=== PATIENT | female | born 1940 ===

== ENCOUNTER 2020-07-15 07:46 | Outpatient (REF) | payer MEDICARE, SELFPAY ==
--- NOTE | 2020-07-15 | MM_ITS ---
EXAMINATION: MM SCREENING DIGITAL BREAST TOMOSYNTHESIS, BILATERAL CLINICAL INFORMATION: Screening. Asymptomatic. The lifetime risk of breast cancer based on the Tyrer-Cuzick Model is 1.8%. COMPARISON: Mammography: July 11, 2019 and studies dating back to June 12, 2011 TECHNIQUE: Digital breast tomosynthesis is performed in both the craniocaudal and mediolateral oblique views along with computer-aided detection (CAD). Synthesized 2D images are generated from the tomosynthesis. FINDINGS: There are scattered areas of fibroglandular density (ACR BI-RADS breast composition Category b). No new abnormal dominant mass identified. No suspicious grouping of calcifications. No significant change from prior studies. MM/MM tomosynthesis screening BI IMPRESSION: There are no significant changes from prior study. ASSESSMENT: BI-RADS 1: Negative RECOMMENDATION: Routine annual mammography screening. This patient's information was entered into a reminder system with a target due date for their next mammogram.
== END 2020-07-15 07:47 | disposition home or self-care (01) ==
LOC: HO.MAMMO 07:46
PROVIDERS: PCP Internal Medicine; Visit Provider Internal Medicine
DX: Z12.31 Encounter for screening mammogram for malignant neoplasm of breast (principal)
CPT/HCPCS: 77063; 77067

== ENCOUNTER 2020-08-02 12:16 | Outpatient (REF) | payer MEDICARE, SELFPAY ==
[2020-08-02 13:25] LABS: Estimated Average Glucose 126 mg/dL; Hemoglobin A1C 148.7246 umol/L
[2020-08-02 13:47] LABS: Alanine Aminotransferase 20 U/L (0-31); Albumin Level 4.3 g/dL (3.5-5.0); Alkaline Phosphatase 65 U/L (39-117); Aspartate Amino Transferase 20 U/L (5-31); Bilirubin Direct 0.2 mg/dL (0.0-0.5); Bilirubin Total 0.5 mg/dL (0.0-1.0); Cholesterol 180 mg/dL; Glucose Fasting 103 mg/dL (60-99); HDL Cholesterol 64 mg/dL; LDL Cholesterol Calculated 97 mg/dl; Total Protein 7.3 g/dL (6.5-8.0); Triglycerides 98 mg/dL
[2020-08-02 14:25] LABS: Reflex LDLD? No
== END 2020-08-02 12:17 | disposition home or self-care (01) ==
LOC: HO.LNP 12:16
PROVIDERS: PCP Internal Medicine; Visit Provider Internal Medicine
DX: R73.03 Prediabetes (principal); E78.00 Pure hypercholesterolemia, unspecified
CPT/HCPCS: 80061; 80076; 82947; 83036

== ENCOUNTER 2020-08-08 14:50 | Outpatient (REF) | payer MEDICARE, SELFPAY ==
[2020-08-08 15:25] LABS: Glucose Urine UA NEG (NEG); Leukocyte Esterase Urine 3+ (NEG); Nitrite Urine NEG (NEG); PH 6.5 (5.0-8.0); Specific Gravity - Urine <= 1.005 (1.005-1.025); Urine Blood TRACE (NEG); Urine Ketones NEG (NEG); Urine Protein NEG (NEG-TRACE)
[2020-08-08 16:09] LABS: Appearance Urine HAZY; Color Urine YELLOW
[2020-08-08 17:01] LABS: Bacteria Urine 4+ /LPF; WBC Urine 30-49 /HPF (0-4)
== END 2020-08-08 14:51 | disposition home or self-care (01) ==
LOC: HO.LNP 14:50
PROVIDERS: Visit Provider Internal Medicine
DX: N39.0 Urinary tract infection, site not specified (principal)
CPT/HCPCS: 81001; 81003; 87086; 87088; 87186

== ENCOUNTER 2020-08-20 11:28 | Outpatient (REF) | payer MEDICARE, SELFPAY ==
[2020-08-20 11:52] LABS: Glucose Urine UA 100 MG/DL (NEG); Leukocyte Esterase Urine 1+ (NEG); Nitrite Urine NEG (NEG); Specific Gravity - Urine 1.015 (1.005-1.025); Urine Blood NEG (NEG); Urine Ketones NEG (NEG); Urine Protein NEG (NEG-TRACE)
[2020-08-20 11:56] LABS: Color Urine YELLOW
[2020-08-20 11:57] LABS: Appearance Urine HAZY
[2020-08-20 12:16] LABS: Bacteria Urine 3+ /LPF; RBC Urine 0 /HPF (0); Squamous Epithelial Cell Urine 1+ /LPF
== END 2020-08-20 11:29 | disposition home or self-care (01) ==
LOC: HO.LNP 11:28
PROVIDERS: Visit Provider Internal Medicine
DX: N39.0 Urinary tract infection, site not specified (principal)
CPT/HCPCS: 81001; 87086; 87088; 87186

== ENCOUNTER 2020-11-04 10:05 | Day surgery (SDC) | payer MEDICARE, SELFPAY ==
[2020-10-28 16:23] VITALS: BMI 24.3
--- NOTE | 2020-10-31 11:25 | HO.ANESPROP2 ---
Documented by User: Barbie Jensen 10/31/20 11:26 HPI - Anesthesia Eval Consult details Narrative: 80yo F for Colonoscopy [facility] Past Medical History Medical History Arthritis COVID-19 vaccine series completed History of bursitis History of chronic urinary tract infection Hyperlipidemia Surgical History Surgical History History of foot surgery History of knee surgery Hx of bilateral inguinal hernia repair Hx of colonoscopy Social History Social History Are you a primary health careers instructor to a significant other at home: No Do you presently have visiting nurse or other home services: No Smoking Status: Never smoker Use of substances other than those prescribed or required for medical reasons: No Have you been hit, kicked, punched, or otherwise hurt by someone within the past year? If so, by whom?: No Are you DNR?: No Advance Directives: No Advance Directives Information Provided: No Advance Directives on File: No Recently lost weight without trying: No Eating poorly because of decreased appetite: No Nutrition Risks: No Nutritional Risk Patient : No Meds Allergies Allergy/AdvReac Type Severity Reaction Status Date / Time No Known Allergies Allergy Verified 10/28/20 16:20 Home Medications Medication Instructions Recorded Confirmed Last Taken Type calcium carbonate [Calcium 500] 500 mg PO DAILY 10/28/20 10/28/20 Unknown History simvastatin 10 mg PO DAILY 10/28/20 10/28/20 Unknown History Exam Exam Date and Time: October 31, 2020 1125 Height,Weight and Vital Signs: Height 5 ft 2 in Weight 60.328 kg Assessment and Plan Assessment Anesthesia Assessment: Chart Reviewed Documented by User: John Levi 11/04/20 11:23 [facility] Past Medical History Medical History Arthritis COVID-19 vaccine series completed History of bursitis History of chronic urinary tract infection Hyperlipidemia Surgical History Surgical History History of foot surgery History of knee surgery Hx of bilateral inguinal hernia repair Hx of colonoscopy Social History Social History Are you a primary health careers instructor to a significant other at home: No Do you presently have visiting nurse or other home services: No Smoking Status: Never smoker Use of substances other than those prescribed or required for medical reasons: No Have you been hit, kicked, punched, or otherwise hurt by someone within the past year? If so, by whom?: No Are you DNR?: No Advance Directives: No Advance Directives Information Provided: No Advance Directives on File: No Recently lost weight without trying: No Eating poorly because of decreased appetite: No Nutrition Risks: No Nutritional Risk Patient : No Meds Allergies Allergy/AdvReac Type Severity Reaction Status Date / Time No Known Allergies Allergy Verified 10/28/20 16:20 Home Medications Medication Instructions Recorded Confirmed Last Taken Type calcium carbonate [Calcium 500] 500 mg PO DAILY 10/28/20 10/28/20 Unknown History simvastatin 10 mg PO DAILY 10/28/20 10/28/20 Unknown History Exam Airway Mallampati Class: II TM Dist: >3cm Neck ROM: Full
[2020-11-04 11:17] VITALS: BP 136/80; PULSE 78; RESP 18; TEMP 36.7; O2SAT 96
[2020-11-04] MEDS: Lactated Ringers 1,000 ML 100 ML IVCONT (11:19)
[2020-11-04 13:21] VITALS: BP 95/60; PULSE 71; RESP 14; TEMP 37.2; O2SAT 93
--- NOTE | 2020-11-04 13:23 | PM.OP ---
Brief Operative Note Date of Service: 11/04/20 Pre-op diagnosis: Screening, Family history of colon cancer Post-op diagnosis: other (Colon polyp, Distal rectal polyp at dentate line) Procedure: Colonoscopy to the cecum and TI with bx/removal of polyp at 20cm, and snare polypectomy of polyp at dentate line with partial removal. Surgeon: Lane Gracia Anesthesia: MAC Was an Stamping Die Maker Bench used for this Procedure?: No Estimated blood loss (mL): 4.0 Pathology: other (A. Polyp at 20cm B. Distal rectal polyp at dentate line) Condition: stable Disposition: PACU
[2020-11-04 13:42] VITALS: BP 129/65; PULSE 66; RESP 16; TEMP 37.2; O2SAT 97
--- NOTE | 2020-11-04 18:28 | OP_ITS ---
SURGEON: Lane Gracia MD INDICATIONS: The patient presents for evaluation of colorectal cancer screening in regard to strong family history of colon cancer. Full consent has been obtained from her for this, including risks of bleeding and perforation. PREOPERATIVE DIAGNOSIS: POSTOPERATIVE DIAGNOSIS: PROCEDURE PERFORMED: Colonoscopy to cecum and terminal ileum with biopsy and removal of polyp, and snare polypectomy. ESTIMATED BLOOD LOSS: COMPLICATIONS: ANESTHESIA: Monitored anesthesia care. ASSISTANTS: SPECIMENS: PREOPERATIVE DIAGNOSES: Colorectal cancer screening and strong family history of colon cancer. POSTOPERATIVE DIAGNOSES: Colorectal cancer screening and strong family history of colon cancer, colorectal polyps, diverticulosis. DESCRIPTION OF PROCEDURE: The patient was placed in the left lateral decubitus position. The digital rectal exam revealed no abnormalities. The Olympus video pediatric colonoscope was entered into the rectum and advanced easily to the cecum. Once in the cecum, I did identify normal-appearing cecal pouch with appendiceal orifice and a normal-appearing ileocecal valve. The terminal ileum was cannulated and appeared normal. The scope was withdrawn back in the colon. The entire cecum and ileocecal valve appeared normal. Scope was slowly withdrawn assessing all mucosal surfaces carefully. Preparation was excellent. At 20 cm, was a flat approximately 4 mm polyp, which was biopsied and completely removed with a cold biopsy forceps. There was also a moderate amount of sigmoid diverticulosis. There was no sign of any colitis nor angiodysplasia. In the rectum, seen in the retroflexed position, was what appeared to be an adenomatous area just at the dentate line encompassing approximately 1/5 to 1/4 the circumference of the rectum in what appeared to be the posterior wall. Portions of this were snared and removed and recovered by suction. However, given the location, I could not remove it entirely as I felt it was really just encroaching on the dentate line too closely. The lesion could not really be seen in the forward viewing position. There was no sign of bleeding. Some portions of polyp tissue did remain. The scope was straightened out and withdrawn from the patient. She tolerated the procedure well and was returned to the recovery area in stable condition. IMPRESSION: 1. Small sigmoid colon polyp, status post biopsy and removal. 2. Polypoid tissue seen at dentate line, status post partial snare polypectomy and removal. 3. Diverticulosis. PLAN: The results of the pathology will be checked. Given the finding of the apparent polyp at the dentate line, I suspect she will need a referral for transanal excision of this to be sure no residual polyp tissue remains. She was advised not to use any aspirin and NSAIDs for 1 week. This has been discussed with her daughter. MD MAURICIO Maher/ALLY / [id number] MTDD
== END 2020-11-04 14:16 | disposition home or self-care (01) ==
PROVIDERS: PCP Internal Medicine; Visit Provider Internal Medicine
PROC: 0DJD8ZZ Inspection of Lower Intestinal Tract, Via Natural or Artificial Opening Endoscopic (ICD-10-PCS; CPT 45378; principal; 2020-11-04 11:20)
DX: Z12.11 Encounter for screening for malignant neoplasm of colon (principal); Z80.0 Family history of malignant neoplasm of digestive organs; D12.5 Benign neoplasm of sigmoid colon; K62.1 Rectal polyp; K62.82 Dysplasia of anus; K57.30 Diverticulosis of large intestine without perforation or abscess without bleeding; K64.8 Other hemorrhoids
CPT/HCPCS: 45385; 45380; 88305

== ENCOUNTER → 2020-11-13 13:42 | Outpatient (BNVA) | payer MEDICARE, SELFPAY | PROVIDERS: PCP Internal Medicine; Referring Provider Internal Medicine; Visit Provider Surgery | DX: K62.82 Dysplasia of anus (principal) | CPT/HCPCS: 46600; 99202 ==

== ENCOUNTER 2020-11-29 08:20 | Day surgery (SDC) | payer MEDICARE, SELFPAY ==
[2020-11-25 10:10] VITALS: BMI 23.6
--- NOTE | 2020-11-27 10:51 | P.CONAN_ITS ---
Documented by User: Barbie Jensen 11/27/20 10:52 HPI - Anesthesia Eval Consult details Narrative: 80yo F for Exam Under Anesthesia excision of anal lesion s/p colo with MAC 10/2020 [facility] Active Problems Active Problems: All Active Problems (Updated 11/13/20 @ 14:30 by Dougie Serra MD) AIN grade I (Acute) Past Medical History Medical History AIN grade I Arthritis COVID-19 vaccine series completed History of bursitis History of chronic urinary tract infection Hyperlipidemia Surgical History Surgical History History of foot surgery History of knee surgery Hx of bilateral inguinal hernia repair Hx of colonoscopy Social History Social History Are you a primary medicare sales representative to a significant other at home: No Do you presently have visiting nurse or other home services: No Patient Tobacco Use Status: Never used Tobacco Use of substances other than those prescribed or required for medical reasons: No Are you DNR?: No Advance Directives: No Advance Directives Information Provided: No Meds Allergies Allergy/AdvReac Type Severity Reaction Status Date / Time No Known Allergies Allergy Verified 11/25/20 10:08 Home Medications Medication Instructions Recorded Confirmed Last Taken Type calcium carbonate-vitamin D3 1 cap PO DAILY 11/25/20 11/25/20 Unknown History [Calcium 600 + D(3)] simvastatin 1 tab PO BEDTIME 11/25/20 11/25/20 Unknown History Exam Exam Date and Time: November 27, 2020 1051 Height,Weight and Vital Signs: Height 5 ft 2 in Weight 58.513 kg Assessment and Plan Assessment Anesthesia Assessment: Chart Reviewed Documented by User: John Levi 11/29/20 09:47 [facility] Past Medical History Medical History AIN grade I Arthritis COVID-19 vaccine series completed History of bursitis History of chronic urinary tract infection Hyperlipidemia Surgical History Surgical History History of foot surgery History of knee surgery Hx of bilateral inguinal hernia repair Hx of colonoscopy Social History Social History Are you a primary medicare sales representative to a significant other at home: No Do you presently have visiting nurse or other home services: No Patient Tobacco Use Status: Never used Tobacco Use of substances other than those prescribed or required for medical reasons: No Are you DNR?: No Advance Directives: No Advance Directives Information Provided: No Meds Allergies Allergy/AdvReac Type Severity Reaction Status Date / Time No Known Allergies Allergy Verified 11/25/20 10:08 Home Medications Medication Instructions Recorded Confirmed Last Taken Type calcium carbonate-vitamin D3 1 cap PO DAILY 11/25/20 11/25/20 Unknown History [Calcium 600 + D(3)] simvastatin 1 tab PO BEDTIME 11/25/20 11/25/20 Unknown History Exam Airway Mallampati Class: II TM Dist: >3cm Neck ROM: Full
[2020-11-29 09:25] VITALS: BP 137/68; PULSE 64; RESP 16; TEMP 37.1; O2SAT 97
[2020-11-29] MEDS: Lactated Ringers 1,000 ML 100 ML IVCONT (09:27)
--- NOTE | 2020-11-29 09:42 | MHC.SHP ---
Pre-Procedural Eval Section B Chief Complaint: dysplasia of anus Allergies: Allergies Allergy/AdvReac Type Severity Reaction Status Date / Time No Known Allergies Allergy Verified 11/25/20 10:08 Plan I have reviewed the history and physical and performed a pertinent physical examination on my patient. No changes have occurred unless specified.
--- NOTE | 2020-11-29 10:49 | W.PM.OPN ---
Operative Note Operative Note Date of Service: 11/29/20 Narrative: Preop Diagnosis: AIN1, anal canal Postop diagnosis: The same Procedure: Exam under anesthesia, excision of AIN1, anal canal Surgeon: Dougie Serra MD The patient is a 80 year female who had undergone anoscopy recently and was noted to have polyp on the area of the dentate line that was removed. 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 Since this was not completely removed, she was referred to me and she wanted to proceed with complete excision. She understood the technique of this procedure and she was aware of the risks, benefits, and alternatives She was brought to the operating room placed in prone mark-knife position under general anesthesia via endotracheal tube. The buttocks were retracted with wide tape laterally. The perianal area was prepped and draped in the usual sterile fashion. A surgical time-out was done. Patient received Cefotan 2 g IV preoperatively. Examination of the anal orifice showed external hemorrhoids. I inserted the Yisel Perez retractor and examined the anal canal circumferentially. There was note of a superficial induration in the right side of the anal canal at the level dentate line which appeared to be the previous incision site from his her colonoscopy. There were no other lesions seen in the anal canal. I applied a ydjlig-dy-dsedf stitch proximal to the dentate line past this lesion using a chromic 3-0 stitch. I made an elliptical incision around this induration using blade 15. I carried this to the full-thickness of the mucosa and submucosa of the dentate line and used Metzenbaum scissors to completely excise this. This was sent as specimen. I closed this incision with a running chromic 3-0 stitch, with additional spprwd-[id number]-cqfcp sutures applied for hemostasis. Once hemostasis was ensured, I proceeded to infiltrate the perianal area with Marcaine 0.5% for postop analgesia. I positioned a Gelfoam packing the anal canal. The procedure was then completed. The patient tolerated procedure well. There were no complications noted. Initial final counts of sponges and instruments were correct. Estimated blood loss was about 10 cc The patient was extubated without difficulty and transferred to the recovery room with stable vital signs.
--- NOTE | 2020-11-29 10:53 | PM.OP ---
Brief Operative Note Date of Service: 11/29/20 Pre-op diagnosis: AIN 1, ANAL CANAL Post-op diagnosis: same Procedure: EUA, excision of anal canal lesion Surgeon: Dougie Serra MD Anesthesia: GETA Estimated blood loss (mL): 10 Pathology: other (AIN 1) Condition: stable Disposition: PACU
[2020-11-29 11:04] VITALS: BP 144/76; PULSE 55; RESP 16; TEMP 36.1; O2SAT 100
[2020-11-29 11:08] VITALS: BP 136/64; PULSE 52; RESP 16; O2SAT 100
[2020-11-29 11:13] VITALS: BP 139/64; PULSE 57; RESP 16; O2SAT 100
[2020-11-29] MEDS: Acetaminophen 325 MG TABLET 650 MG PO (11:18)
[2020-11-29] MEDS: oxyCODONE HCl Immed Release 5 MG TABLET PO (11:19)
[2020-11-29 11:20] VITALS: BP 145/60; PULSE 61; RESP 18; O2SAT 99
[2020-11-29 11:27] VITALS: BP 144/54; PULSE 54; RESP 18; TEMP 36.1; O2SAT 99
== END 2020-11-29 12:07 | disposition home or self-care (01) ==
PROVIDERS: PCP Internal Medicine; Visit Provider Surgery
PROC: (CPT 46922; principal; 2020-11-29 10:10)
DX: K62.82 Dysplasia of anus (principal); E78.5 Hyperlipidemia, unspecified; Z79.899 Other long term (current) drug therapy; Z87.440 Personal history of urinary (tract) infections
CPT/HCPCS: 46922; 88305; 88342; 88360; J1100; J2250; J2405; J3010

== ENCOUNTER → 2020-12-11 09:19 | Outpatient (BNVA) | payer MEDICARE, SELFPAY | PROVIDERS: PCP Internal Medicine; Visit Provider Surgery | DX: Z48.815 Encounter for surgical aftercare following surgery on the digestive system (principal); Z87.19 Personal history of other diseases of the digestive system | CPT/HCPCS: 99212 ==

== ENCOUNTER 2021-01-20 10:59 | Outpatient (REF) | payer MEDICARE, SELFPAY ==
[2021-01-20 11:04] LABS: MANUAL DIFF FLAG NO
[2021-01-20 11:40] LABS: Basophils Percent Auto 0.4 % (0-2); Eosinophils Absolute Auto 0.1 X10*3/uL (0.0-0.4); Eosinophils Percent Auto 1.4 % (0-4); Hematocrit 46.4 % (37-47); Hemoglobin 14.8 g/dl (12.0-16.0); Imm Gran Abs Auto 0.05 X10*3/uL (0.00-0.03); Imm Gran Pct Auto 0.5 % (0.0-0.4); Lymphocytes Absolute Auto 1.8 X10*3/uL (1.2-4.9); Lymphocytes Percent Auto 18.4 % (20-40); Mean Corpuscular HGB Conc 31.9 g/dl (31.0-35.0); Mean Corpuscular Hemoglobin 30.1 pg (27.0-33.0); Mean Corpuscular Volume 94.3 fL (80-98); Mean Platelet Volume 11.8 fL (9.4-12.3); Monocytes Absolute Auto 1.1 X10*3/uL (0.1-1.2); Monocytes Percent Auto 11.2 % (2-11); Neutrophils Absolute Auto 6.6 X10*3/uL (2.0-8.3); Neutrophils Percent Auto 68.1 % (45-73); Platelet Count 303 X10*3/uL (160-400); Red Blood Count 4.92 X10*6/uL (4.20-5.50); Red Cell Distribution Width 14.4 % (11.0-16.0); White Blood Count 9.7 X10*3/uL (4.8-10.8)
[2021-01-20 12:14] LABS: Estimated Average Glucose 128 mg/dL; Hemoglobin A1c % 6.1 %
[2021-01-20 12:19] LABS: Alanine Aminotransferase 24 U/L (0-31); Albumin Level 4.5 g/dL (3.5-5.0); Alkaline Phosphatase 61 U/L (39-117); Anion Gap 15 (12-20); Aspartate Amino Transferase 25 U/L (5-31); Bilirubin Total 0.4 mg/dL (0.0-1.0); Blood Urea Nitrogen 17 mg/dL (9-16); Calcium 9.8 mg/dL (8.4-10.2); Carbon Dioxide 26 mmol/L (22-29); Chloride 106 mmol/L (96-108); Cholesterol 185 mg/dL; Estimated Glomerular Filt Rate > 60; Glucose Fasting 93 mg/dL (60-99); HDL Cholesterol 78 mg/dL; LDL Cholesterol Calculated 88 mg/dl; Potassium 4.7 mmol/L (3.3-5.1); Sodium 142 mmol/L (135-145); Total Protein 7.6 g/dL (6.5-8.0); Triglycerides 99 mg/dL
[2021-01-20 12:26] LABS: Reflex LDLD? No
[2021-01-20 12:28] LABS: Glucose Urine UA NEG (NEG); Leukocyte Esterase Urine 3+ (NEG); Nitrite Urine NEG (NEG); Specific Gravity - Urine 1.015 (1.005-1.025); Urine Blood TRACE (NEG); Urine Ketones NEG (NEG); Urine Protein NEG (NEG-TRACE)
[2021-01-20 12:29] LABS: Vitamin D 25-OH Total 42.5 ng/mL (>30)
[2021-01-20 12:41] LABS: Appearance Urine CLOUDY; Color Urine YELLOW
[2021-01-20 12:44] LABS: Creatinine Urine 116.43 mg/dL
[2021-01-20 12:53] LABS: Bacteria Urine 3+ /LPF; Renal Epithelial Cells Urine 1+ /LPF; Squamous Epithelial Cell Urine 1+ /LPF; WBC Urine TNTC /HPF (0-4)
== END 2021-01-20 11:00 | disposition home or self-care (01) ==
LOC: HO.LNP 10:59
PROVIDERS: Visit Provider Internal Medicine
DX: Z00.00 Encounter for general adult medical examination without abnormal findings (principal); R73.03 Prediabetes; M85.80 Other specified disorders of bone density and structure, unspecified site; E55.9 Vitamin D deficiency, unspecified; E78.00 Pure hypercholesterolemia, unspecified
CPT/HCPCS: 80053; 80061; 81001; 81003; 82043; 82306; 83036; 85025

== ENCOUNTER 2021-01-23 13:44 | Outpatient (REF) | payer MEDICARE, SELFPAY | END 2021-01-23 13:45 | disposition home or self-care (01) | LOC: HO.LNP 13:44 | PROVIDERS: Visit Provider Internal Medicine | DX: N30.00 Acute cystitis without hematuria (principal) | CPT/HCPCS: 87086; 87088; 87186 ==

== ENCOUNTER 2021-07-17 09:49 | Outpatient (REF) | payer MEDICARE, SELFPAY ==
--- NOTE | ~2021-07-17 | MM_ITS ---
EXAMINATION: MM SCREENING DIGITAL BREAST TOMOSYNTHESIS, BILATERAL CLINICAL INFORMATION: Screening. Asymptomatic. The lifetime risk of breast cancer based on the Tyrer-Cuzick Model is 1.3%. COMPARISON: Mammography: July 15, 2020 and studies dating back to June 25, 2015 TECHNIQUE: Digital breast tomosynthesis is performed in both the craniocaudal and mediolateral oblique views along with computer-aided detection (CAD). Synthesized 2D images are generated from the tomosynthesis. FINDINGS: There are scattered areas of fibroglandular density (ACR BI-RADS breast composition Category b). There are no significant masses, abnormal calcifications, or other abnormalities. MM/MM tomosynthesis screening BI IMPRESSION: There are no significant changes from prior study. ASSESSMENT: BI-RADS 1: Negative RECOMMENDATION: Routine annual mammography screening. This patient's information was entered into a reminder system with a target due date for their next mammogram.
== END 2021-07-17 09:50 | disposition home or self-care (01) ==
LOC: HO.MAMMO 09:49
PROVIDERS: Visit Provider Internal Medicine
DX: Z12.31 Encounter for screening mammogram for malignant neoplasm of breast (principal)
CPT/HCPCS: 77063; 77067

== ENCOUNTER 2021-10-13 13:42 | Outpatient (REF) | payer MEDICARE, SELFPAY | END 2021-10-13 13:43 | disposition home or self-care (01) | LOC: HO.LNP 13:42 | PROVIDERS: Visit Provider Emergency Medicine | DX: N39.0 Urinary tract infection, site not specified (principal) | CPT/HCPCS: 87086 ==

== ENCOUNTER 2021-11-11 09:59 | Outpatient (REF) | payer MEDICARE, SELFPAY ==
[2021-11-11 10:36] LABS: Appearance Urine CLOUDY; Color Urine YELLOW; Glucose Urine UA NEG (NEG); Leukocyte Esterase Urine 3+ (NEG); Nitrite Urine NEG (NEG); Specific Gravity - Urine 1.025 (1.005-1.025); Urine Blood 3+ (NEG); Urine Ketones NEG (NEG); Urine Protein 2+ MG/DL (NEG-TRACE)
[2021-11-11 11:33] LABS: WBC Urine TNTC /HPF (0-4)
[2021-11-11 11:35] LABS: Bacteria Urine 1+ /LPF; Squamous Epithelial Cell Urine 1+ /LPF
== END 2021-11-11 10:00 | disposition home or self-care (01) ==
LOC: HO.LNP 09:59
PROVIDERS: Visit Provider Internal Medicine
DX: N39.0 Urinary tract infection, site not specified (principal)
CPT/HCPCS: 81001; 87086

== ENCOUNTER 2021-12-02 11:07 | Outpatient (REF) | payer MEDICARE, SELFPAY ==
[2021-12-02 11:45] LABS: Appearance Urine CLEAR; Color Urine YELLOW; Glucose Urine UA NEG (NEG); Leukocyte Esterase Urine 1+ (NEG); Nitrite Urine NEG (NEG); Urine Blood NEG (NEG); Urine Ketones NEG (NEG); Urine Protein NEG (NEG-TRACE)
[2021-12-02 12:12] LABS: Hyaline Casts Urine 0-2 /LPF; Mucus Urine 1+ /LPF; RBC Urine 0-2 /HPF (0); Squamous Epithelial Cell Urine 2+ /LPF
== END 2021-12-02 11:08 | disposition home or self-care (01) ==
LOC: HO.LNP 11:07
PROVIDERS: Visit Provider Internal Medicine
DX: Z51.89 Encounter for other specified aftercare (principal); R82.90 Unspecified abnormal findings in urine
CPT/HCPCS: 81001

== ENCOUNTER → 2021-12-04 08:50 | Outpatient (BNVA) | payer MEDICARE, SELFPAY | PROVIDERS: PCP Internal Medicine; Visit Provider Surgery | DX: K62.82 Dysplasia of anus (principal) | CPT/HCPCS: 46600; 99212 ==

== ENCOUNTER 2022-01-19 10:30 | Outpatient (REF) | payer MEDICARE, SELFPAY ==
[2022-01-19 10:35] LABS: MANUAL DIFF FLAG NO
[2022-01-19 10:56] LABS: Basophils Absolute Auto 0.1 X10*3/uL (0.0-0.2); Basophils Percent Auto 0.8 % (0-2); Eosinophils Absolute Auto 0.1 X10*3/uL (0.0-0.4); Eosinophils Percent Auto 1.5 % (0-4); Hematocrit 42.1 % (37.0-47.0); Hemoglobin 13.6 g/dl (12.0-16.0); Imm Gran Abs Auto 0.03 X10*3/uL (0.00-0.03); Imm Gran Pct Auto 0.4 % (0.0-0.4); Lymphocytes Absolute Auto 1.8 X10*3/uL (1.2-4.9); Lymphocytes Percent Auto 23.3 % (20-40); Mean Corpuscular HGB Conc 32.3 g/dl (31.0-35.0); Mean Corpuscular Hemoglobin 30.2 pg (27.0-33.0); Mean Corpuscular Volume 93.3 fL (80.0-98.0); Mean Platelet Volume 10.6 fL (9.4-12.3); Monocytes Absolute Auto 0.8 X10*3/uL (0.1-1.2); Monocytes Percent Auto 10.1 % (2-11); Neutrophils Percent Auto 63.9 % (45-73); Platelet Count 327 X10*3/uL (160-400); Red Blood Count 4.51 X10*6/uL (4.20-5.50); Red Cell Distribution Width 12.4 % (11.0-16.0); White Blood Count 7.9 X10*3/uL (4.8-10.8)
[2022-01-19 11:10] LABS: Estimated Average Glucose 117 mg/dL; Hemoglobin A1c % 5.7 %
[2022-01-19 11:13] LABS: Alanine Aminotransferase 21 U/L (0-31); Albumin Level 4.3 g/dL (3.5-5.0); Alkaline Phosphatase 70 U/L (39-117); Anion Gap 14 (12-20); Aspartate Amino Transferase 22 U/L (5-31); Bilirubin Total 0.5 mg/dL (0.0-1.0); Blood Urea Nitrogen 21 mg/dL (9-16); Calcium 9.3 mg/dL (8.4-10.2); Carbon Dioxide 27 mmol/L (22-29); Chloride 105 mmol/L (96-108); Cholesterol 197 mg/dL; Estimated Glomerular Filt Rate > 60; Glucose Fasting 112 mg/dL (60-99); HDL Cholesterol 64 mg/dL; LDL Cholesterol Calculated 117 mg/dl; Potassium 4.8 mmol/L (3.3-5.1); Sodium 141 mmol/L (135-145); Total Protein 7.1 g/dL (6.5-8.0); Triglycerides 84 mg/dL
[2022-01-19 11:22] LABS: Creatinine Urine 60.94 mg/dL; Microalbumin Urine < 5.0 mg/L
[2022-01-19 11:33] LABS: Appearance Urine CLEAR; Color Urine STRAW; Glucose Urine UA NEG (NEG); Leukocyte Esterase Urine NEG (NEG); Nitrite Urine NEG (NEG); PH 6.5 (5.0-8.0); Urine Blood NEG (NEG); Urine Ketones NEG (NEG); Urine Protein NEG (NEG-TRACE)
[2022-01-19 11:36] LABS: Vitamin D 25-OH Total 43.3 ng/mL (>30)
[2022-01-19 11:55] LABS: Squamous Epithelial Cell Urine TRACE /LPF
[2022-01-19 11:56] LABS: RBC Urine 0 /HPF (0); WBC Urine 0-2 /HPF (0-4)
== END 2022-01-19 10:31 | disposition home or self-care (01) ==
LOC: HO.LNP 10:30
PROVIDERS: Visit Provider Internal Medicine
DX: Z00.00 Encounter for general adult medical examination without abnormal findings (principal); R73.03 Prediabetes; E78.00 Pure hypercholesterolemia, unspecified; E55.9 Vitamin D deficiency, unspecified
CPT/HCPCS: 80053; 80061; 81001; 82043; 82306; 83036; 85025

== ENCOUNTER 2022-01-30 11:10 | Outpatient (REF) | payer MEDICARE, SELFPAY | END 2022-01-30 11:11 | disposition home or self-care (01) | LOC: HO.LNP 11:10 | PROVIDERS: Visit Provider Internal Medicine | DX: Z12.4 Encounter for screening for malignant neoplasm of cervix (principal) | CPT/HCPCS: 88142 ==

== ENCOUNTER 2022-07-23 10:44 | Outpatient (REF) | payer MEDICARE, SELFPAY ==
--- NOTE | ~2022-07-23 | MM_ITS ---
EXAMINATION: MM SCREENING DIGITAL BREAST TOMOSYNTHESIS, BILATERAL CLINICAL INFORMATION: Screening. Asymptomatic. The lifetime risk of breast cancer based on the Tyrer-Cuzick Model is 1.4%. COMPARISON: Mammography: July 17, 2021 and studies dating back to June 25, 2015 TECHNIQUE: Digital breast tomosynthesis is performed in both the craniocaudal and mediolateral oblique views along with computer-aided detection (CAD). Synthesized 2D images are generated from the tomosynthesis. FINDINGS: There are scattered areas of fibroglandular density (ACR BI-RADS breast composition Category b). There are no significant masses, abnormal calcifications, or other abnormalities. MM/MM tomosynthesis screening BI IMPRESSION: No significant changes from prior exam. ASSESSMENT: BI-RADS 1: Negative RECOMMENDATION: Routine annual mammography screening. This patient's information was entered into a reminder system with a target due date for their next mammogram.
== END 2022-07-23 10:45 | disposition home or self-care (01) ==
LOC: HO.MAMMO 10:44
PROVIDERS: Visit Provider Internal Medicine
DX: Z12.31 Encounter for screening mammogram for malignant neoplasm of breast (principal)
CPT/HCPCS: 77063; 77067

== ENCOUNTER 2022-09-21 15:32 | Outpatient (REF) | payer MEDICARE, SELFPAY ==
[2022-09-21 15:43] LABS: Appearance Urine Clear; Color Urine Yellow; Glucose Urine UA 250 mg/dL (Negative); Leukocyte Esterase Urine Moderate (2+) (Negative); Nitrite Urine Negative (Negative); Specific Gravity - Urine 1.025 (1.005-1.025); UMIC TRIGGER UA YES; Urine Blood Negative (Negative); Urine Ketones Negative (Negative); Urine Protein Trace mg/dL (Neg-Trace)
[2022-09-21 15:46] LABS: Bacteria Urine None Seen (None Seen); Hyaline Casts Urine 0-2 /LPF (0-2); RBC Urine 0-2 /HPF (0-2); Squamous Epithelial Cell Urine 0-2 /HPF (0-2); WBC Urine >50 /HPF (0-5)
== END 2022-09-21 15:33 | disposition home or self-care (01) ==
LOC: HO.LNP 15:32
PROVIDERS: Visit Provider Internal Medicine
DX: B02.29 Other postherpetic nervous system involvement (principal); N30.00 Acute cystitis without hematuria
CPT/HCPCS: 81001; 87086

== ENCOUNTER → 2022-11-19 09:39 | Outpatient (BNVA) | payer MEDICARE, SELFPAY | PROVIDERS: PCP Internal Medicine; Visit Provider Surgery | DX: K62.82 Dysplasia of anus (principal); Z80.41 Family history of malignant neoplasm of ovary | CPT/HCPCS: 46600; 99212 ==

== ENCOUNTER 2023-02-18 11:31 | Outpatient (REF) | payer MEDICARE, SELFPAY ==
[2023-02-18 11:57] LABS: MANUAL DIFF FLAG NO
[2023-02-18 12:19] LABS: Basophils Absolute Auto 0.1 X10*3/uL (0.0-0.2); Basophils Percent Auto 0.9 % (0-2); Eosinophils Absolute Auto 0.3 X10*3/uL (0.0-0.4); Eosinophils Percent Auto 4.3 % (0-4); Hematocrit 41.9 % (37.0-47.0); Hemoglobin 13.8 g/dl (12.0-16.0); Imm Gran Abs Auto 0.02 X10*3/uL (0.00-0.03); Imm Gran Pct Auto 0.3 % (0.0-0.4); Lymphocytes Absolute Auto 1.8 X10*3/uL (1.2-4.9); Lymphocytes Percent Auto 27.8 % (20-40); Mean Corpuscular HGB Conc 32.9 g/dl (31.0-35.0); Mean Corpuscular Volume 91.1 fL (80.0-98.0); Mean Platelet Volume 10.1 fL (9.4-12.3); Monocytes Percent Auto 15.8 % (2-11); Neutrophils Absolute Auto 3.3 x10*3/uL (2.0-8.3); Neutrophils Percent Auto 50.9 % (45-73); Platelet Count 343 X10*3/uL (160-400); Red Cell Distribution Width 12.6 % (11.0-16.0); White Blood Count 6.4 X10*3/uL (4.8-10.8)
[2023-02-18 12:25] LABS: Appearance Urine Clear; Color Urine Yellow; Glucose Urine UA Negative (Negative); Leukocyte Esterase Urine Trace (Negative); Nitrite Urine Negative (Negative); PH 7.5 (5.0-9.0); Specific Gravity - Urine 1.015 (1.005-1.025); UMIC TRIGGER UACC YES; Urine Blood Negative (Negative); Urine Ketones Negative (Negative); Urine Protein Negative (Neg-Trace)
[2023-02-18 12:30] LABS: Estimated Average Glucose 120 mg/dL; Hemoglobin A1c % 5.8 % (<6.0)
[2023-02-18 12:41] LABS: Alanine Aminotransferase 25 U/L (0-31); Albumin Level 4.2 g/dL (3.5-5.0); Alkaline Phosphatase 68 U/L (39-117); Anion Gap 14 (12-20); Aspartate Amino Transferase 27 U/L (5-31); Bilirubin Total 0.3 mg/dL (0.0-1.0); Blood Urea Nitrogen 15 mg/dL (9-16); Calcium 10.5 mg/dL (8.4-10.2); Carbon Dioxide 25 mmol/L (22-29); Chloride 104 mmol/L (96-108); Cholesterol 162 mg/dL (<200); Estimated Glomerular Filt Rate > 60; Glucose Fasting 94 mg/dL (60-99); HDL Cholesterol 64 mg/dL (>40); LDL Cholesterol Calculated 82 mg/dL (<100); Potassium 4.1 mmol/L (3.3-5.1); Sodium 139 mmol/L (135-145); Total Protein 7.3 g/dL (6.5-8.0); Triglycerides 82 mg/dL (<150)
[2023-02-18 12:44] LABS: Vitamin D 25-OH Total 55.2 ng/mL (>30)
[2023-02-18 14:05] LABS: Microalbum/Creatinine Ratio Ur 7.4 ug/mg cr (<30)
[2023-02-18 15:35] LABS: Bacteria Urine None Seen (None Seen); Hyaline Casts Urine 0-2 /LPF (0-2); RBC Urine 0-2 /HPF (0-2); Squamous Epithelial Cell Urine 0-2 /HPF (0-2); WBC Urine 0-5 /HPF (0-5)
== END 2023-02-18 11:32 | disposition home or self-care (01) ==
LOC: HO.LNP 11:31
PROVIDERS: Visit Provider Internal Medicine
DX: Z00.00 Encounter for general adult medical examination without abnormal findings (principal); R73.03 Prediabetes; E78.00 Pure hypercholesterolemia, unspecified; E55.9 Vitamin D deficiency, unspecified
CPT/HCPCS: 80053; 80061; 81001; 81003; 82043; 82306; 82570; 83036; 85025

== ENCOUNTER 2023-02-23 10:36 | Outpatient (REF) | payer MEDICARE, SELFPAY ==
[2023-02-23 10:46] LABS: Calcium 9.2 mg/dL (8.4-10.2)
== END 2023-02-23 10:37 | disposition home or self-care (01) ==
LOC: HO.LNP 10:36
PROVIDERS: PCP Internal Medicine; Visit Provider Internal Medicine
DX: E83.52 Hypercalcemia (principal)
CPT/HCPCS: 82310

== ENCOUNTER 2023-07-27 10:55 | Outpatient (REF) | payer MEDICARE, SELFPAY | END 2023-07-27 10:56 | disposition home or self-care (01) | LOC: HO.MAMMO 10:55 | PROVIDERS: PCP Internal Medicine; Visit Provider Internal Medicine | DX: Z12.31 Encounter for screening mammogram for malignant neoplasm of breast (principal) | CPT/HCPCS: 77063; 77067 ==

== ENCOUNTER → 2023-07-27 11:00 | Outpatient (BNV) | payer MEDICARE, SELFPAY | PROVIDERS: PCP Internal Medicine; Visit Provider Radiology Diagnostic Radiology | DX: Z12.31 Encounter for screening mammogram for malignant neoplasm of breast (principal) | CPT/HCPCS: 77063; 77067 ==

== ENCOUNTER 2023-08-23 15:03 | Outpatient (AMB) | payer MEDICARE, SELFPAY ==
--- NOTE | 2023-08-23 15:20 | MHC.OFFVIS ---
Intake Intake Visit Reasons: ? hemorrhoids Intake Note: This patient presents for an assessment for ? hemorrhoids. Patient c/o; reports hard lump, reports no rectal bleeding, reports dark almost black stools, reports itchiness. Investigation Manager Required: No Accompanied by: Self / Same As Patient Allergies No Known Allergies Allergy (Verified 08/23/23 15:31) Medication List - Last Reconciled 08/24/23 by Dougie Serra MD calcium carbonate-vitamin D3 600 mg-5 mcg (200 unit) (Calcium 600 + D(3)) 1 cap PO DAILY docusate sodium (Colace) 100 mg PO BID oxycodone-acetaminophen 5-325 mg (Percocet) 1 - 2 tabs PO Q4-6H PRN simvastatin 1 tab PO BEDTIME sulfamethoxazole-trimethoprim 800-160 mg (Bactrim DS) 1 tab PO BID 7 days HPI ? hemorrhoids HPI Details 82-year-old female here what she says is a lump on her anus. She says that she is started to feel this about late last week. She says that this had some pain on the beginning onset. She she denies any bleeding. She does have a known history of hemorrhoids in the past along with AIN. She is able to sit down comfortably. [facility] Medical History (Updated 08/24/23 @ 13:51 by Dougie Serra MD) Thrombosed external hemorrhoid Family history of ovarian cancer AIN grade II AIN grade I COVID-19 vaccine series completed History of bursitis Arthritis History of chronic urinary tract infection Hyperlipidemia Surgical History Hx of bilateral inguinal hernia repair History of knee surgery History of foot surgery Hx of colonoscopy Family History Daughter Ovarian cancer, Onset Age: 38 Social History Are you a primary women's health care nurse practitioner to a significant other at home: No Do you presently have visiting nurse or other home services: No Patient Tobacco Use Status: Never used Tobacco Review of Systems Const Denies chills and Denies fever(s) Card Denies chest pain, Denies dyspnea and Denies dyspnea on exertion Resp Denies cough, Denies dyspnea and Denies dyspnea on exertion GI Denies hematochezia and Denies change in bowel habits Denies hematuria Musc Denies back pain and Denies limited range of motion Neuro Denies focal weakness and Denies convulsions Psych Denies depression and Denies mood swings Physical Exam Const General: comfortable and no acute distress Orientation/consciousness: patient oriented x3 Neck Neck: Yes no lymphadenopathy Resp Auscultation: clear to auscultation bilaterally Cardio Rhythm: regular rhythm GI Other: Rectal exam - large thrombosed external hemorrhoid about 2 cm in diameter on the left, nontender, anoscopy and digital exam deferred for now Palpation (GI): Soft to palpation, nontender and no guarding Neuro General: patient oriented x3 Assessment & Plan Assessment & Plan (1) Thrombosed external hemorrhoid: Code(s): K64.5 - Perianal venous thrombosis Plan: She has a large thrombosed external hemorrhoid as described above. She is passed acute phase. She is currently not as tender and says her pain has improved significantly. I advised her on hot Sitz baths to hasten resorption of the thrombosed. I told her that we can hold off on I and D and evacuation of the clot at this time. I will see her again in the office to re-evaluate her in about 2-3 weeks. She is comfortable with the plan. Coding Level of Care Code Est Pt Level 3 (67514) Diagnoses Thrombosed external hemorrhoid K64.5
== END 2023-08-23 15:59 | disposition home or self-care (01) ==
PROVIDERS: PCP Internal Medicine; Visit Provider Surgery
DX: K64.5 Perianal venous thrombosis (principal)
CPT/HCPCS: 99213

== ENCOUNTER → 2023-08-23 15:03 | Outpatient (BNVA) | payer MEDICARE, SELFPAY | PROVIDERS: PCP Internal Medicine; Visit Provider Surgery | DX: K64.5 Perianal venous thrombosis (principal) | CPT/HCPCS: 99212 ==

== ENCOUNTER 2023-08-24 11:10 | Outpatient (REF) | payer MEDICARE, SELFPAY ==
[2023-08-24 11:44] LABS: Estimated Average Glucose 128 mg/dL; Hemoglobin A1c % 6.1 % (<6.0)
[2023-08-24 12:10] LABS: Alanine Aminotransferase 35 U/L (0-31); Albumin Level 4.1 g/dL (3.5-5.0); Alkaline Phosphatase 63 U/L (39-117); Aspartate Amino Transferase 20 U/L (5-31); Bilirubin Direct 0.2 mg/dL (0.0-0.5); Bilirubin Total 0.6 mg/dL (0.0-1.0); Cholesterol 194 mg/dL (<200); Glucose Fasting 112 mg/dL (60-99); HDL Cholesterol 79 mg/dL (>40); LDL Cholesterol Calculated 100 mg/dL (<100); Total Protein 7.2 g/dL (6.5-8.0); Triglycerides 77 mg/dL (<150)
[2023-08-24 12:22] LABS: Reflex LDLD? No
== END 2023-08-24 11:11 | disposition home or self-care (01) ==
LOC: HO.LNP 11:10
PROVIDERS: Visit Provider Internal Medicine
DX: R73.03 Prediabetes (principal); E78.00 Pure hypercholesterolemia, unspecified
CPT/HCPCS: 80061; 80076; 82947; 83036

== ENCOUNTER 2023-09-06 10:36 | Outpatient (AMB) | payer MEDICARE, SELFPAY ==
--- NOTE | 2023-09-06 10:42 | A.OFFVIS_ITS ---
Intake Vital Signs 09/06/23 10:48 Weight 126 lb 0.013 oz Intake Visit Reasons: 2 wk follow up hemorrhoids Intake Note: This patient presents for a two week follow up hemorrhoids. Pt c/o; reports hemorrhoids are shrinking and she is feeling much better, reports no rectal bleeding. Labor Arbitrator Required: No Accompanied by: Self / Same As Patient Allergies No Known Allergies Allergy (Verified 09/06/23 10:49) Medication List - Last Reconciled 09/06/23 by Dougie Serra MD calcium carbonate-vitamin D3 600 mg-5 mcg (200 unit) (Calcium 600 + D(3)) 1 cap PO DAILY docusate sodium (Colace) 100 mg PO BID oxycodone-acetaminophen 5-325 mg (Percocet) 1 - 2 tabs PO Q4-6H PRN simvastatin 1 tab PO BEDTIME sulfamethoxazole-trimethoprim 800-160 mg (Bactrim DS) 1 tab PO BID 7 days HPI 2 wk follow up hemorrhoids HPI Details I seen her last August 23, 2023 because of a thrombosed external hemorrhoid. I had instructed her to do hot Sitz baths for this . She is here for follow-up. She states she feels much better. She has much less pain. She is able to sit down more comfortably. She does complain of constipation. [facility] Medical History Thrombosed external hemorrhoid Family history of ovarian cancer AIN grade II AIN grade I COVID-19 vaccine series completed History of bursitis Arthritis History of chronic urinary tract infection Hyperlipidemia Surgical History Hx of bilateral inguinal hernia repair History of knee surgery History of foot surgery Hx of colonoscopy Family History Daughter Ovarian cancer, Onset Age: 38 Social History Are you a primary rn progressive care unit to a significant other at home: No Do you presently have visiting nurse or other home services: No Patient Tobacco Use Status: Never used Tobacco Review of Systems Const Denies chills and Denies fever(s) Card Denies chest pain, Denies dyspnea and Denies dyspnea on exertion Resp Denies cough, Denies dyspnea and Denies dyspnea on exertion GI Denies hematochezia, Denies change in bowel habits and Reports constipation Denies hematuria Musc Denies back pain and Denies limited range of motion Neuro Denies focal weakness and Denies convulsions Psych Denies depression and Denies mood swings Physical Exam Const General: comfortable and no acute distress Resp Effort & Inspection: normal respiratory effort GI Other: Rectal exam - thrombosed external hemorrhoid on the left softer, nontender this time, appears smaller Palpation (GI): Soft to palpation Assessment & Plan Assessment & Plan (1) Thrombosed external hemorrhoid: Code(s): K64.5 - Perianal venous thrombosis Plan: She describes significant improvement hot Sitz baths. She says that they thrombosed hemorrhoid does not cause any pain or bleeding. She is able to sit down comfortably. I recommended for her to continue doing hot Sitz baths for least 2 more weeks. I did tell her her to come back to the office if she continues to have issues down the line I written her a prescription for Colace. Coding Level of Care Code Est Pt Level 2 (17173) Diagnoses Thrombosed external hemorrhoid K64.5
== END 2023-09-06 10:59 | disposition home or self-care (01) ==
PROVIDERS: PCP Internal Medicine; Visit Provider Surgery
DX: K64.5 Perianal venous thrombosis (principal)
CPT/HCPCS: 99212

== ENCOUNTER → 2023-09-06 10:36 | Outpatient (BNVA) | payer MEDICARE, SELFPAY | PROVIDERS: PCP Internal Medicine; Visit Provider Surgery | DX: K64.5 Perianal venous thrombosis (principal) | CPT/HCPCS: 99212 ==

== ENCOUNTER 2023-12-08 08:02 | Outpatient (AMB) | payer MEDICARE, SELFPAY ==
--- NOTE | 2023-12-08 08:17 | A.OFFVIS_ITS ---
Vital Signs 12/08/23 08:36 Height 5 ft 1 in Weight 125 lb 10.616 oz BMI 23.7 BP 138/60 Blood Pressure Location Rt brachial Position Sitting Pulse 77 Pulse Source Pulse Oximeter Pulse Oximetry (%) 97 Oxygen Delivery Method Room Air Intake Visit Reasons: bl knee arth/cm Intake Note: New pt seen today for bl knee pain, neck pain, wrist pain and right shoulder pain. Has tried meloxicam and cortisone injections. States mother had terrible arthritis [employer] Required: No Accompanied by: Self / Same As Patient Allergies No Known Allergies Allergy (Verified 12/08/23 08:18) Medication List - Last Reconciled 12/08/23 by Shy Brewster MD cholecalciferol (vitamin D3) (Vitamin D3) 25 mcg PO DAILY meloxicam 15 mg PO DAILY PRN simvastatin 1 tab PO BEDTIME HPI Comments Details: This is an 83-year-old female who presents for evaluation of arthritis. She states that her mother had terrible arthritis she has not sure whether it was osteoarthritis or rheumatoid arthritis. For the last 15 years patient has had trouble joint pains. She has neck pain that only intermittently radiates to her right elbow. She does exercises at home. She had bilateral knee meniscal surgery about 10 years ago. She has been having bilateral knee pain recently, the pain is usually worse at night. She was evaluated by an orthopedist recently and was told she does not have significant arthritis, she had bilateral knee cortisone injections about 4 months ago. They did not provide much relief. She also gets intermittent episodes of bursitis of her hips. She usually treats it with meloxicam 15 mg daily for 4-6 weeks. [facility] Medical History Cataracts, bilateral Thrombosed external hemorrhoid Family history of ovarian cancer AIN grade II AIN grade I COVID-19 vaccine series completed History of bursitis Arthritis History of chronic urinary tract infection Hyperlipidemia Surgical History Hx of bilateral inguinal hernia repair History of knee surgery History of foot surgery Hx of colonoscopy Family History Daughter Ovarian cancer, Onset Age: 38 Mother Rheumatoid arthritis Social History Are you a primary director of health care marketing to a significant other at home: No Do you presently have visiting nurse or other home services: No Alcohol intake: never Patient Tobacco Use Status: Never used Tobacco Female Reproductive History Menstrual Age of Menarche: 15 Total pregnancies: 2 Ab induced: 0 Ab spontaneous: 0 Review of Systems Eyes Reports dry eyes ENT Reports neck pain Musc Reports arthralgias, Reports joint swelling, Reports neck pain and Reports stiffness Physical Exam Vital Signs: Last Vital Signs Pulse 77 12/08/23 08:36 BP 138/60 12/08/23 08:36 Pulse Ox 97 12/08/23 08:36 Oxygen Delivery Method Room Air 12/08/23 08:36 BMI result Body Mass Index 23.7 Const General: cooperative, healthy appearing and comfortable Nutritional Appearance: average body habitus Orientation/consciousness: patient oriented x3 Limitations: no limitations HEENT Head: Yes normocephalic and Yes atraumatic Mouth: moist mucous membranes Neck Other: Mildly limited range of motion of neck in all directions Resp Effort & Inspection: normal respiratory effort and able to speak in complete sentences Auscultation: clear to auscultation bilaterally Cardio Rate: regular rate Rhythm: regular rhythm Skin General skin exam: no rashes or lesions noted Neuro General: patient oriented x3 Extrem Other: Osteoarthritic changes of both hands with prominent Jovanni's and Heberden's nodes No active synovitis Normal nailfold capillaroscopy Normal range of motion of hands, wrists, elbows and shoulders without pain No knee pain with full flexion-extension Negative straight leg raise test bilaterally No trochanteric bursa area tenderness bilaterally Assessment & Plan Assessment & Plan (1) Generalized osteoarthritis: Code(s): M15.9 - Polyosteoarthritis, unspecified Category: Medical Plan: This is an 83-year-old female who presents for evaluation of arthritis. I do not see any signs suggestive of an autoimmune rheumatic disease. Clinical picture consistent with generalized osteoarthritis. I had a long conversation patient about the difference between inflammatory arthritis and osteoarthritis. Discussed different treatment strategies. Most symptomatic is her neck, her knees, intermittent bilateral hip bursitis. Advised patient to take Tylenol [id number] mg daily as needed for joint pain. Use meloxicam sparingly. Patient is not interested pain management evaluation. Referred patient to PT of her neck Follow-up as needed (2) Degenerative cervical disc: Code(s): M50.30 - Other cervical disc degeneration, unspecified cervical region Category: Medical Plan: Referred to PT Plan I spent 47 minutes reviewing patient's chart, evaluating patient, counseling patient and documenting in the chart Orders: Orders PT Evaluation and Treatment Today M50.30 - Other cervical disc degeneration, unspecified cervical region Coding Level of Care Code New Pt Level 4 (69612) Diagnoses Generalized osteoarthritis M15.9 Degenerative cervical disc M50.30
[2023-12-08 08:36] VITALS: BP 138/60; PULSE 77; O2SAT 97; BMI 23.7
== END 2023-12-08 09:39 | disposition home or self-care (01) ==
PROVIDERS: PCP Internal Medicine; Visit Provider Student in an Organized Health Care Education/Training Program
DX: M15.9 Polyosteoarthritis, unspecified (principal); M50.30 Other cervical disc degeneration, unspecified cervical region
CPT/HCPCS: 99204

== ENCOUNTER → 2023-12-08 08:02 | Outpatient (BNVA) | payer MEDICARE, SELFPAY | PROVIDERS: PCP Internal Medicine; Visit Provider Student in an Organized Health Care Education/Training Program | DX: M15.9 Polyosteoarthritis, unspecified (principal); M50.30 Other cervical disc degeneration, unspecified cervical region | CPT/HCPCS: 99202 ==

== ENCOUNTER 2023-12-13 08:41 | Day surgery (SDC) | payer MEDICARE, SELFPAY ==
[2023-12-07 14:03] VITALS: BMI 22.9
--- NOTE | 2023-12-10 10:21 | P.CONAN_ITS ---
Documented by User: Barbie Jensen NP 12/10/23 10:22 HPI - Anesthesia Eval Consult details Narrative: 83yo F for Right Cataract Extraction IOL Insertion No previous cataract on record PMFSH Active Problems Active Problems: All Active Problems Generalized osteoarthritis (Acute) Degenerative cervical disc (Acute) UTI (urinary tract infection), uncomplicated (Acute) Thrombosed external hemorrhoid (Acute) Family history of ovarian cancer (Acute) AIN grade II (Acute) AIN grade I (Acute) Past Medical History Medical History Cataracts, bilateral Thrombosed external hemorrhoid Family history of ovarian cancer AIN grade II AIN grade I COVID-19 vaccine series completed History of bursitis Arthritis History of chronic urinary tract infection Hyperlipidemia Family History Family History Daughter Ovarian cancer, Onset Age: 38 Mother Rheumatoid arthritis Surgical History Surgical History Hx of bilateral inguinal hernia repair History of knee surgery History of foot surgery Hx of colonoscopy Social History Social History Are you a primary home care administrator to a significant other at home: No Do you presently have visiting nurse or other home services: No Alcohol intake: never Patient Tobacco Use Status: Never used Tobacco Use of substances other than those prescribed or required for medical reasons: No Are you DNR?: No Advance Directives: No Advance Directives Information Provided: Yes Meds Allergies Allergy/AdvReac Type Severity Reaction Status Date / Time No Known Allergies Allergy Verified 12/13/23 10:01 Home Medications ?Medication ?Instructions ?Recorded ?Confirmed ?Last Taken ?Type simvastatin 20 mg tablet 1 tab PO BEDTIME 11/25/20 12/13/23 Unknown History cholecalciferol (vitamin D3) 25 25 mcg PO DAILY 12/07/23 12/13/23 Unknown History mcg (1,000 unit) capsule (Vitamin D3) meloxicam 15 mg tablet 15 mg PO DAILY PRN Pain 12/08/23 12/13/23 Unknown History Exam Height,Weight and Vital Signs: Height 5 ft 2 in Weight 56.699 kg Assessment and Plan Assessment Anesthesia Assessment: Chart Reviewed Documented by User: Donna Pond MD 12/13/23 10:22 [facility] Past Medical History Medical History Cataracts, bilateral Thrombosed external hemorrhoid Family history of ovarian cancer AIN grade II AIN grade I COVID-19 vaccine series completed History of bursitis Arthritis History of chronic urinary tract infection Hyperlipidemia Family History Family History Daughter Ovarian cancer, Onset Age: 38 Mother Rheumatoid arthritis Surgical History Surgical History Hx of bilateral inguinal hernia repair History of knee surgery History of foot surgery Hx of colonoscopy History of Problems with Anesthesia: No Social History Social History Are you a primary home care administrator to a significant other at home: No Do you presently have visiting nurse or other home services: No Alcohol intake: never Patient Tobacco Use Status: Never used Tobacco Use of substances other than those prescribed or required for medical reasons: No Are you DNR?: No Advance Directives: No Advance Directives Information Provided: Yes Meds Allergies Allergy/AdvReac Type Severity Reaction Status Date / Time No Known Allergies Allergy Verified 12/13/23 10:01 Home Medications ?Medication ?Instructions ?Recorded ?Confirmed ?Last Taken ?Type simvastatin 20 mg tablet 1 tab PO BEDTIME 11/25/20 12/13/23 Unknown History cholecalciferol (vitamin D3) 25 25 mcg PO DAILY 12/07/23 12/13/23 Unknown History mcg (1,000 unit) capsule (Vitamin D3) meloxicam 15 mg tablet 15 mg PO DAILY PRN Pain 12/08/23 12/13/23 Unknown History Exam Airway Mallampati Class: II TM Dist: >3cm Neck ROM: Limited Loose/Missing/Broken Teeth: No Heart: RRR Lungs: CTA Assessment and Plan Assessment Anesthesia Assessment: Anesthesia Plan Discussed Final Anesthetic Review History of Problems with Anesthesia: No NPO: Yes ASA Class: II Final Preanesthetic Review: Meds/Allgs Chart Reviewed, Consent Obtained/Reviewed and Anes Risks/Benef Reviewed Patient Risk: Low Procedure Risk: Low Anesthetic Plan Anesthetic Plan: MAC: Disposition: Standard PACU
--- OUTSIDE RECORDS SUMMARY | 2023-12-13 08:43 | XMS_ITS | Patient Health Record ---
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 Role Phone Edin Akbar Primary Care Provider ALLERGIES No Known Allergies RESULTS Component Value Reference Range Notes Hemoglobin A1c Reviewed date:11/30/2023 10:15:59 AM Interpretation: Performing Lab: Notes/Report: Value Hemoglobin A1c 6.0 Complete Blood Count Auto Di ff Reviewed date:02/18/2023 01:59:14 PM Interpretation: Performing Lab:[facility], [address] [place] [phone] Notes/Report: White Blood Count 6.4 4.8-10.8 X10*3/uL Red Blood Count 4.60 4.20-5.50 X10*6/uL Hemoglobin 13.8 12.0-16.0 g/dl Hematocrit 41.9 37.0-47.0 % Mean Corpuscular Volume 91.1 80.0-98.0 fL Mean Corpuscular Hemoglobin 30.0 27.0-33.0 pg Mean Corpuscular HGB Conc 32.9 31.0-35.0 g/dl Red Cell Distribution Width 12.6 11.0-16.0 % Platelet Count 343 160-400 X10*3/uL Mean Platelet Volume 10.1 9.4-12.3 fL Neutrophils Percent Auto 50.9 45-73 % Imm Gran Pct Auto 0.3 0.0-0.4 % Lymphocytes Percent Auto 27.8 20-40 % Monocytes Percent Auto 15.8 2-11 % Eosinophils Percent Auto 4.3 0-4 % Basophils Percent Auto 0.9 0-2 % NRBC Pct Auto 0.0 0.0-0.2 /100WBC Neutrophils Absolute Auto 3.3 2.0-8.3 x10*3/u L Imm Gran Abs Auto 0.02 0.00-0.03 X10*3/uL Lymphocytes Absolute Auto 1.8 1.2-4.9 X10*3/u L Monocytes Absolute Auto 1.0 0.1-1.2 X10*3/uL Eosinophils Absolute Auto 0.3 0.0-0.4 X10*3/u L Basophils Absolute Auto 0.1 0.0-0.2 X10*3/uL NRBC Abs Auto 0.000 0.0-0.012 X10*3/uL Comprehensive Morrice. Panel Fa st Reviewed date:02/22/2023 06:10:22 AM Interpretation: Performing Lab:[facility], [address] [place] [phone] Notes/Report: Sodium 139 135-145 mmol/L Potassium 4.1 3.3-5.1 mmol/L Chloride 104 96-108 mmol/L Carbon Dioxide 25 22-29 mmol/L Anion Gap 14 12-20 Blood Urea Nitrogen 15 9-16 mg/dL Creatinine 0.77 0.5-1.4 mg/dL Estimated Glomerular Filt Rate > 60 NOTE: For -[place] individuals, multiply the result by 1.210. Chronic Kidney Disease: Estimated GFR < 60 mL/min/1.73m2 Severe Kidney Disease: Estimated GFR < 15 mL/min/1.73m2 Glucose Fasting 94 60-99 mg/dL Calcium 10.5 8.4-10.2 mg/dL Bilirubin Total 0.3 0.0-1.0 mg/dL Aspartate Amino Transferase 27 5-31 U/L Alanine Aminotransferase 25 0-31 U/L Total Protein 7.3 6.5-8.0 g/dL Albumin Level 4.2 3.5-5.0 g/dL Alkaline Phosphatase 68 39-117 U/L Lipid Panel Reviewed date:02/18/2023 01:51:44 PM Interpretation: Performing Lab:[facility], [address] [place] [phone] Notes/Report: Triglycerides 82 <150 mg/dL Desirable Triglyceride: less than 150 mg/dL Borderline High Triglyceride 150-199 mg/dL High Triglyceride: 200-499 mg/dL Very High Triglyceride: greater than or equal to 5OO mg/dL Cholesterol 162 <200 mg/dL Desirable Cholesterol: less than 200 mg/dL Borderline High Cholesterol: 200-239 mg/dL High Cholesterol: greater than 239 mg/dL LDL Cholesterol Calculated 82 <100 mg/dL Desirable LDL: less than 100 mg/dL Near Optimal/Above Optimal LDL: 110-129 mg/dL Borderline High LDL: 130-159 mg/dL High LDL: 160-189 mg/dL Very High LDL: greater than or equal to 190 mg/dL HDL Cholesterol 64 >40 mg/dL Desirable HDL: greater than 40 mg/dL Note: This HDL assay may give artificially low results in patients with liver disease. Vitamin D 25-OH Total Reviewed date:02/18/2023 01:51:34 PM Interpretation: Performing Lab:[facility], [address] [place] [phone] Notes/Report: Vitamin D 25-OH Total 55.2 >30 ng/mL Health Based Reference Values* < 20 ng/mL Deficient 20-30 ng/mL Insufficient > 30 ng/mL Sufficient *Davida MORALES. N Engl J Med. 2007;357:266-280 Care must be taken in interpreting Vitamin D results from different laboratories and methodologies. Published data demonstrated that results from patients undergoing hemodialysis may show a negative bias when tested with various automated 25-OH vitamin D assays when compared to LC-MS/MS. When testing samples from patients whose predominant form of Vitamin D is Vitamin D2, such as patients receiving Vitamin D2 supplementation, results that are subtherapeutic should be confirmed with another method such as LC-MS/MS. Microalbumin, Random Reviewed date:02/21/2023 08:25:55 AM Interpretation: Performing Lab:[facility], [address] [place] [phone] Notes/Report: Creatinine Urine 81.00 Microalbumin Urine 6.0 Microalbum/Creatinine Ratio Ur 7.4 <30 ug/mg cr Albumin/Creatinine Ratio Reference Ranges: Normal: < 30 ug/mg creatinine Microalbuminuria: 30 - 300 ug/mg creatinine Clinical Albuminuria: > 300 ug/mg creatinine Hemoglobin A1c Reviewed date:02/18/2023 01:50:07 PM Interpretation: Performing Lab:[facility], [address] [place] [phone] Notes/Report: Hemoglobin A1c % 5.8 <6.0 % Hemoglobin A1C Reference Range Adults: 4.8 - 6.0 % Non diabetic: < 6.0 % Goal: < 7.0 % Additional Action Suggested: > 8.0 % Note: Hemoglobin A1c results are invalid for patients with abnormal amounts of HbF. Blood transfusions may impact the HbA1c concentration in the patient sample. Estimated Average Glucose 120 eAG = Estimated average glucose which is %A1C expressed as average glucose, using the formula of the L1R-Pcazthi Average Glucose study (ADAG), Diabetes Care, Vol.31,#8, Jan. 2007 UA ClnCatch+Micro w/rflx Cul t Reviewed date:02/23/2023 03:42:59 PM Interpretation: Performing Lab:[facility], [address] [place] [phone] Notes/Report: Urine, Clean Catch Color Urine Yellow Appearance Urine Clear PH 7.5 5.0-9.0 Glucose Urine UA Negative Negative mg/dL Urine Blood Negative Negative Specific [place] - Urine 1.015 1.005-1.025 Urine Protein Negative Neg-Trace mg/dL Urine Ketones Negative Negative mg/dL Nitrite Urine Negative Negative Leukocyte Esterase Urine Trace Negative RBC Urine 0-2 0-2 /HPF WBC Urine 0-5 0-5 /HPF Squamous Epithelial Cell Urine 0-2 0-2 /HPF Bacteria Urine None Seen None Seen Hyaline Casts Urine 0-2 0-2 /LPF Occult Blood, Stool, Guaiac Reviewed date:02/23/2023 10:41:10 AM Interpretation:Negative Performing Lab: Notes/Report: Negative Occult Blood, Stool, Guaiac Neg Calcium Reviewed date:02/23/2023 12:29:44 PM Interpretation: Performing Lab:[facility], [address] [place] [phone] Notes/Report: Calcium 9.2 8.4-10.2 mg/dL MM tomosynthesis screening B I Reviewed date:08/15/2023 05:21:34 PM Interpretation: Performing Lab: Notes/Report: [facility] [address] [place] [address] Mammography Report Signed Patient: Cristina Montero MR#: [id number] : 1940 Acct:[id number] Age/Sex: 82 / F ADM Date: 07/27/23 Loc: HO.MAMMO Attending Dr: Edin Akbar MD Ordering Physician: Edin Akbar MD Results: 1Ne gative Date of Service: 07/27/23 Follow Up: 1 Year From Orig ina Mammogram Procedure(s): MM tomosynthesis screening BI Accession Number(s): [id number] cc: Edin Akbar MD EXAMINATION: MM SCREENING DIGITAL BREAST TOMOSYNTHESIS, BILATERAL CLINICAL INFORMATION: Screening. Asymptomatic. COMPARISON: Mammography: This study is compared with prior exams dating back to 2019. TECHNIQUE: Digital breast tomosynthesis is performed in both the craniocaudal and mediolateral oblique views along with computer-aided detection (CAD). Synthesized 2D images are generated from the tomosynthesis. FINDINGS: There are scattered areas of fibroglandular density (ACR BI-RADS breast composition Category b). There are no significant masses, abnormal calcifications, or other abnormalities. MM/MM tomosynthesis screening BI IMPRESSION: No mammographic evidence of malignancy. ASSESSMENT: BI-RADS BI-RADS 1 - Negative RECOMMENDATION: Routine annual mammography screening. 1 year F/U This examination should not preclude the clinical evaluation of a suspicious palpable abnormality. This patient's information was entered into a reminder system with a target due date for their next mammogram. Dictated By: Poonam Baez MD Signed By: <Electronically signed by Poonam Baez MD in OV> 08/15/23 1205 DD/ 1115 TD/TT: Library Circulation Department Chief: Jerad Garcia Reviewed date:08/24/2023 11:42:04 AM Interpretation: Performing Lab:[facility], [address] [place] [phone] Notes/Report: Jerad Garcia See Note Specimen held untested for 24 hours; Call to request Chemistry testing. Liver Panel Reviewed date:08/24/2023 08:41:10 PM Interpretation: Performing Lab:[facility], [address] [place] [phone] Notes/Report: Bilirubin Total 0.6 0.0-1.0 mg/dL Bilirubin Direct 0.2 0.0-0.5 mg/dL Aspartate Amino Transferase 20 5-31 U/L Alanine Aminotransferase 35 0-31 U/L Total Protein 7.2 6.5-8.0 g/dL Albumin Level 4.1 3.5-5.0 g/dL Alkaline Phosphatase 63 39-117 U/L Glucose Fasting Reviewed date:08/24/2023 01:29:37 PM Interpretation: Performing Lab:[facility], [address] [place] [phone] Notes/Report: Glucose Fasting 112 60-99 mg/dL A fasting glucose from 100-125 mg/dl is considered impaired (pre-diabetes). Lipid Panel with Reflex Reviewed date:08/24/2023 01:30:10 PM Interpretation: Performing Lab:[facility], [address] [place] [phone] Notes/Report: Triglycerides 77 <150 mg/dL Desirable Triglyceride: less than 150 mg/dL Borderline High Triglyceride 150-199 mg/dL High Triglyceride: 200-499 mg/dL Very High Triglyceride: greater than or equal to 5OO mg/dL Cholesterol 194 <200 mg/dL Desirable Cholesterol: less than 200 mg/dL Borderline High Cholesterol: 200-239 mg/dL High Cholesterol: greater than 239 mg/dL LDL Cholesterol Calculated 100 <100 mg/dL Desirable LDL: less than 100 mg/dL Near Optimal/Above Optimal LDL: 110-129 mg/dL Borderline High LDL: 130-159 mg/dL High LDL: 160-189 mg/dL Very High LDL: greater than or equal to 190 mg/dL HDL Cholesterol 79 >40 mg/dL Desirable HDL: greater than 40 mg/dL Note: This HDL assay may give artificially low results in patients with liver disease. Hemoglobin A1c Reviewed date:08/24/2023 12:08:46 PM Interpretation: Performing Lab:[facility], [address] [place] [phone] Notes/Report: Hemoglobin A1c % 6.1 <6.0 % Hemoglobin A1C Reference Range Adults: 4.8 - 6.0 % Non diabetic: < 6.0 % Goal: < 7.0 % Additional Action Suggested: > 8.0 % Note: Hemoglobin A1c results are invalid for patients with abnormal amounts of HbF. Blood transfusions may impact the HbA1c concentration in the patient sample. Estimated Average Glucose 128 eAG = Estimated average glucose which is %A1C expressed as average glucose, using the formula of the X1E-Envbdcs Average Glucose study (ADAG), Diabetes Care, Vol.31,#8, Jan. 2007 Glucose, finger stick Reviewed date:11/30/2023 10:09:04 AM Interpretation: Performing Lab: Notes/Report: Value 91 REASON FOR REFERRAL Reason arthritis of bones k nees, hand and neck Diagnosis 1 Arthritis of both kn ees (M17.0) Diagnosis 2 Arthritis of hand (M 19.049) Diagnosis 3 Arthritis of neck (M 46.92) Referral Organization Edin Akbar MD Referring Provider First Name Edin Referring Provider Last Name Naomie Referring Provider Speciality Internal M edicine Referred Provider Shy Brewster Referred Provider Specialty Rheumatology General Notes Khloe Romero 09:38:01 AM EDT > info faxed , Khloe Romero 10/05/2023 02:03:58 PM EDT > patient is aware of her appt Referral Priority Routine Referral Appointment Date 12/21/2023 MEDICATIONS Medication SIG (Take, Route, Frequency, Duration) Notes Start Date End Date Status Vitamin D 1000 UNIT 1 tablet Orally Once a day 09/11/2015 Active Calcium 600 MG 1 tablet with meals Orally Twice a day for 30 day(s) Active Meclizine HCl 25 MG 1 tablet as needed Orally twicee a day for 10 Not-Taking Diflucan 100 MG once a dsa Orally on ce a day for 5 days 04/19/2020 Not-Taking Simvastatin 20 MG TAKE 1 TABLET BY TRI TH ONCE A DAY IN THE EVENING Active Transderm-Scop (1.5 MG) 1 MG/3DAYS 1 patch to skin as needed Transdermal every 3 days for 14 days 08/07/2016 Not-Taking Flonase 50 MCG/ACT 1 spray in each nost ril Nasally Once a day for 30 days 09/09/2015 Not-Taking IMMUNIZATIONS Vaccine Route Administration Date Status Comme nts DECLINED, FLU Unknown 07/17/2013 Administered PPSV23 (Pnemovax) IM Intramuscular 01/30/2020 Administered SARS-COV-2 Pfizer Unknown 07/20/2020 Administered SARS-COV-2 Pfizer Unknown 08/11/2020 Administered SARS-COV-2 Moderna Unknown 04/22/2021 Administered [facility] Flu Vaccine Unknown 08/27/2014 Refused PPSV23 (Pnemovax) Unknown 09/03/2014 Refused Flu Vaccine Unknown 09/09/2015 Refused PPSV23 (Pnemovax) Unknown 03/16/2017 Refused Fluarix Quadrivalent Unknown 03/16/2017 Refused Fluarix Quadrivalent Unknown 04/04/2018 Refused Influenza High Dose Unknown 05/01/2019 Refused Fluarix Quadrivalent Unknown 01/18/2020 Refused refu sed to schedule SOCIAL HISTORY Tobacco Use: Social History Observation Description Date Details (start date - stop date) Never Smoker NA - NA Sex Assigned At : Social History Observation Description Sex Assigned At Unknown Tobacco Use/Smoking Question Answer Notes Patient is a nonsmoker Additional Findings: Tobacco Non-User Cu rrent non-smoker, currently using no form of tobacco Alcohol Screen Question Answer Notes Did you have a drink containing alcohol in the p ast year? No Points 0 Interpretation Negative PROBLEMS Problem Type ICD Code Onset Dates Problem Status W/U Status Risk SNOMED Code Notes Problem Vitamin D deficiency (E55.9) Active confirmed 61905835 Problem Hypercalcemia (E83.52) Active confirmed Hypercalcemia (86635001) Problem Osteopenia (M85.80) Active confirmed 31 4913621 Problem Prediabetes (R73.09) Active confirmed 9 203857 Problem Post herpetic neuralgia (B02.29) Active confirmed 4051954 Problem Pure hypercholesterolemia (E78.00) Active confirmed 919779988 Problem Arthritis of hand (M19.049) Active confirmed Arthritis of hand (816319062) Problem 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) Active confirmed 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) Problem Condyloma acuminata (A63.0) Active confirmed Anogenital warts (488757999) Problem Arthritis of both knees (M17.0) Active confirmed Arthritis of both knees (53442475260525 08) Problem Fat deposits (E65) Active confirmed 248 722264 Problem Acute constipation (K59.00) Active confirmed 662672479 Problem Age-related cataract of both eyes, unspecified age-related cataract type (H25.9) Active confirmed 38603694 VITAL SIGNS Blood pressure diastolic 62 mm Hg 08/31/2023 joni ght is down 3 pounds since 02-23-23 Height 62 in 08/31/2023 weight is down 3 pounds since 02-23-23 Blood pressure systolic 126 mm Hg 08/31/2023 weig ht is down 3 pounds since 02-23-23 Weight 124 lbs 08/31/2023 weight is down 3 pounds since 02-23-23 BMI 22.68 kg/m2 08/31/2023 weight is down 3 pounds since 02-23-23 Encounters Encounter Location Date Provider Diagnosis Edin Akbar MD [address] [place] [id number] 02/23/2023 Edin Akbar Hypercalcemia E83.52 ; Adult general medical exam Z00.00 ; Prediabetes R73.09 ; Vitamin D deficiency E55.9 ; Condyloma acuminata A63.0 ; Pure hypercholesterolemia E78.00 ; Colon cancer screening Z12.11 and Depression screen Z13.31 Edin Akbar MD [address] [place] [id number] 02/18/2023 Edin Akbar Blood tests for rout ine general physical examination Z00.00 ; Prediabetes R73.09 ; Pure hypercholesterolemia E78.00 and Vitamin D deficiency E55.9 Edin Akbar MD [address] [place] [address] [id number] 08/24/2023 Edin Akbar Prediabetes R73.09 a nd Pure hypercholesterolemia E78.00 Edin Akbar MD [address] [place] [address] [id number] 08/31/2023 Edin Akbar Prediabetes R73.09 ; Pure hypercholesterolemia E78.00 and Acute constipation K59.00 Edin Akbar MD [address] [place] [address] [id number] 06/17/2023 Edin Akbar MD [address] [place] [address] [id number] 11/30/2023 Edin Akbar Pre-op exam Z01.818 ; Age-related cataract of both eyes, unspecified age-related cataract type H25.9 and Prediabetes R73.09 Edni Akbar MD [address] [place] [address] [id number] 09/30/2023 Edin Akbar MD [address] [place] [address] [id number] 11/30/2023 Edin Akbar ASSESSMENTS Encounter Date Diagnosis Assessment Notes Treatment Notes Treatment Clinical Notes 02/23/2023 Hypercalcemia (ICD-1 0 - E83.52) takes calcium. will recheck, pending lab 02/23/2023 Adult general medica l exam (ICD-10 - Z00.00) labs reviewed and discussed with patient 02/18/2023 Prediabetes (ICD-10 - R73.09) 02/18/[address] ine general physical examination (ICD-10 - Z00.00) 08/24/2023 Prediabetes (ICD-10 - R73.09) 08/24/2023 Pure hypercholestero lemia (ICD-10 - E78.00) 08/31/2023 Prediabetes (ICD-10 - R73.09) doing well with good a1c, no need for medication at this time 08/31/2023 Pure hypercholestero lemia (ICD-10 - E78.00) well controlled/ lft's satisfactory, will cpontnue current regiment 11/30/2023 Pre-op exam (ICD-10 - Z01.818) patient healthy and no need for any further evaluation prior to the upcoming surgery 11/30/2023 Age-related cataract of both eyes, unspecified age-related cataract type (ICD-10 - H25.9) 02/23/2023 Prediabetes (ICD-10 - R73.09) doing great, no need for medication at this time 02/18/2023 Pure hypercholestero lemia (ICD-10 - E78.00) 08/31/2023 Acute constipation ( ICD-10 - K59.00) if it doesn't get better with the dietary changes to return 11/30/2023 Prediabetes (ICD-10 - R73.09) stable, no need for medication at this time 02/23/2023 Vitamin D deficiency (ICD-10 - E55.9) good vit d, will continue current regiment 02/18/2023 Vitamin D deficiency (ICD-10 - E55.9) 02/23/2023 Condyloma acuminata (ICD-10 - A63.0) saw chha 02/23/2023 Pure hypercholestero lemia (ICD-10 - E78.00) at goal, will continue current regiment 02/23/2023 Colon cancer screeni ng (ICD-10 - Z12.11) guaiac negative 02/23/2023 Depression screen (I CD-10 - Z13.31) negative screen PLAN OF TREATMENT Pending Test Test Name Order Date Electrocardiogram (EKG) 10/20/2018 Electrocardiogram (EKG) 06/24/2012 Electrocardiogram (EKG) 10/07/2017 Next Appt Details Provider Name:Edin pineda, 02/15/2024 07:30:00 AM, [address] [place] [address], [address], [phone], Provider Name:Edin altamiranor, 03/02/2024 02:30:00 PM, [address] [place] [address], [address], [place], [place], [id number], Insurance Providers Payer Name Payer Address Payer Phone Subscriber Number Group Number Insured Name Patient Relationship to Insured Coverage Start Date Coverage End Date [employer] [facility] [address] [place] [phone] [id number] Cristina Montero Self - patient is the insured [employer] [facility] [address] [facility] [phone] [id number] Cristina Montero Self - patient is the insured MEDICAL (GENERAL) HISTORY Medical History History ICD Code colonoscopy - 04/13/2012 - no further w/ u necessary [employer]VIR[employer]MENT[employer] PROGRAMS SPECIALIST, DR. Berta BLACK Mammo scheduled for 12/18/13 History of abnormal mammogram Z87.898 anal lesion needs yearly anoscopy
--- OUTSIDE RECORDS SUMMARY | 2023-12-13 08:43 | XMS_ITS | Patient Health Record ---
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 Name Role Phone Edin Akbar MD Primary Care Provider Lane Can [phone] ALLERGIES Allergen (clinical drug ingredient) Drug/Non Drug Allergy documented on EMR Reaction Allergy Type Onset Date Status Steroid steroid (uncoded) Unknown Allergy Ac tive REASON FOR REFERRAL No Information MEDICATIONS Medication SIG (Take, Route, Fr equency, Duration) Notes Start Date End Date Status Simvastatin 10mg Act ryne Calcium 500mg Active IMMUNIZATIONS Vaccine Route Administration Date Status Comme nts Influenza Unknown 10/15/2020 Refused SOCIAL HISTORY Sex Assigned At : Social History Observation Description Sex Assigned At Unknown PROBLEMS Problem Type ICD Code Onset Dates Problem Status W/U Status Risk SNOMED Code Notes Problem Encounter for screening for malignant neoplasm of colon (Z12.11) Active confirmed 506530051 Problem Preprocedural examination (Z01.818) Active confirmed 625146758745716 Problem Family history of colon cancer (Z80.0) Active confirmed 832523760 PLAN OF TREATMENT Future Test Test Name Order Date COLONOSCOPY 03/11/2012 COLONOSCOPY 10/15/2020 Insurance Providers Payer Name Payer Address Payer Phone Subscriber Number Group Number Insured Name Patient Relationship to Insured Coverage Start Date Coverage End Date [facility] [address] [place] [phone] [id number] RENEE KELLER Self - patient is the insured MEDICAL (GENERAL) HISTORY Medical History History ICD Code Denies ID,DM,CVA,Lung disease,renal dise ase Hyperlipidemia History of Chronic UTI'S Negative colonoscopies in 2001 and 04/02 12 Surgical History Surgery Date(Month/Year) Left foot surgery Hernia surgery--bilaterl inguinal Knee surgery bilateral
[2023-12-13 09:51] VITALS: BP 160/73; PULSE 71; RESP 15; TEMP 36.3; O2SAT 97
[2023-12-13] MEDS: Lactated Ringers 500 ML 50 ML IV (10:11)
--- NOTE | 2023-12-13 11:05 | P.PCNO_ITS ---
Ophthalmology Procedure Procedure Date of Service: 12/13/23 Ophthalmology Viscoelastic: Healon Duet Dual Pack Pro Ophthalmology Lenses: IOL Acrysof MP - [id number] (24) Procedure Notes: PREOPERATIVE DIAGNOSIS: Decreased visual acuity right eye secondary to cataract POSTOPERATIVE DIAGNOSIS: Same PROCEDURE: Right cataract extraction with intraocular lens insertion SURGEON: Iron Jacob M.D. ANESTHESIA: Topical/MAC ESTIMATED BLOOD LOSS: None COMPLICATIONS: None After obtaining informed consent, the patient was brought to the operating room suite and placed in the supine position. After adequate sedation per anesthesia, topical drops of Tetracaine were given to the right eye. The eye was then prepped and draped in the usual sterile fashion. The operating room microscope was then positioned over the operative eye and a lid speculum placed. A paracentesis was created. Viscoelastic was then instilled into the anterior chamber. A three plane incision was then created temporally, utilizing a 2.85 mm keratome. Capsulotomy forceps were then utilized to create a circular tear capsulotomy. Hydrodissection and hydrodelineation were carried out until adequate mobilization of the nucleus occurred. Phacoemulsification was then utilized to remove the dense central nucl eus followed by removal of the cortical material utilizing the automated aspiration irrigation unit. Viscoelastic was instilled into the posterior capsular bag followed by placement of a posterior chamber intraocular lens without difficulty. The residual Viscoelastic was then removed utilizing the automated IA machine. The wound was checked and found to be watertight. The patient tolerated the procedure well and the lid speculum was removed. Intracameral injection of Vigamox 0.1 mL followed by a subtenon injection of Kenalog-40 0.2 mL were administered. The patient will be seen in the a.m.
--- NOTE | 2023-12-13 11:05 | MHC.SHP ---
Pre-Procedural Eval Section A - 24 Hr Update-Section A only Date of Service: 12/13/23 The patient is an INPATIENT: No Changes since office visit: No Cold of Flu in the past 2 weeks, No New Medical Problems, No Changes in Medication and No Patient answered all questions The patient has been examined within 24 hours of the surgical procedure. The History & Physical has been completed within 30 days and I have reviewed it.: Yes Section B - Complete if H&P > 30 days Chief Complaint: Age-related nuclear cataract, right eye Allergies: Allergies Allergy/AdvReac Type Severity Reaction Status Date / Time No Known Allergies Allergy Verified 12/13/23 10:01 Plan Diagnosis/Plan: Unchanged I have reviewed the history and physical and performed a pertinent physical examination on my patient. No changes have occurred unless specified. Time Spent With Patient Time: Total time managing care of this patient today ____ minutes.
[2023-12-13 11:34] VITALS: BP 142/68; PULSE 72; RESP 16; TEMP 36.3; O2SAT 95
== END 2023-12-13 11:43 | disposition home or self-care (01) ==
PROVIDERS: PCP Internal Medicine; Visit Provider Ophthalmology
PROC: (CPT 66985; principal; 2023-12-13 10:30)
DX: H25.11 Age-related nuclear cataract, right eye (principal); H54.7 Unspecified visual loss; H04.123 Dry eye syndrome of bilateral lacrimal glands; H18.413 Arcus senilis, bilateral; E78.00 Pure hypercholesterolemia, unspecified; Z79.899 Other long term (current) drug therapy
CPT/HCPCS: 66984; J2250; J3301; V2630

== ENCOUNTER 2023-12-27 07:32 | Day surgery (SDC) | payer MEDICARE, SELFPAY ==
[2023-12-07 14:06] VITALS: BMI 22.9
--- OUTSIDE RECORDS SUMMARY | 2023-12-27 07:36 | XMS_ITS | Patient Health Record ---
Author Organization [facility] Address [address] [place] [address] Care Team Providers Care General Assignment Reporter Name Role Phone Edin Akbar MD Primary Care Provider Lane Can [phone] ALLERGIES Allergen (clinical drug ingredient) Drug/Non Drug [...] malignant neoplasm of colon (Z12.11) Active confirmed 949628646 Problem Preprocedural examination (Z01.818) Active confirmed 639186991432016 Problem Family history of colon cancer (Z80.0) Active confirmed 268581144 PLAN OF TREATMENT Future Test Test Name Order Date COLONOSCOPY 03/11/2012 COLONOSCOPY 10/15/2020 Insurance Providers Payer Name Payer Address Payer Phone Subscriber Number Group Number Insured Name Patient Relationship to Insured Coverage Start Date Coverage End Date [facility] [address] [place] [phone] [id number] RENEE KELLER Self - patient is the insured MEDICAL (GENERAL) HISTORY Medical History History ICD Code Denies [place],DM,CVA,Lung disease,renal dise ase Hyperlipidemia History of Chronic UTI'S Negative colonoscopies in 2001 and 04/02 12 Surgical History Surgery Date(Month/Year) Left foot surgery Hernia surgery--bilaterl inguinal Knee surgery bilateral
--- OUTSIDE RECORDS SUMMARY | 2023-12-27 07:36 | XMS_ITS | Patient Health Record ---
Author Organization Edin Akbar MD Address [address] [place], [place] [id number] Care Team Providers Care Manager Federal Name Role Phone Edin Akbar Primary Care Provider [phone] ALLERGIES No Known Allergies RESULTS Component Value Reference Range Notes Hemoglobin A1c Reviewed date:11/30/2023 10:15:59 AM Interpretation: Performing Lab: Notes/Report: Value Hemoglobin A1c 6.0 Complete Blood Count Auto Di ff Reviewed date:02/18/2023 01:59:14 PM Interpretation: Performing Lab:[facility] [place], [address] [place] [phone] Notes/Report: White Blood Count 6.4 4.8-10.8 X10*3/uL [...] NRBC Abs Auto 0.000 0.0-0.012 X10*3/uL Comprehensive [place]. Panel Fa st Reviewed date:02/22/2023 06:10:22 AM Interpretation: Performing Lab:[facility] [place], [address] [place] [phone] Notes/Report: Sodium 139 135-145 mmol/L Potassium 4.1 3.3-5.1 mmol/L Chloride 104 96-108 mmol/L Carbon Dioxide 25 22-29 mmol/L Anion Gap 14 12-20 Blood Urea Nitrogen 15 9-16 mg/dL Creatinine 0.77 0.5-1.4 mg/dL Estimated Glomerular Filt Rate > 60 NOTE: For -Moroccan individuals, multiply the result by 1.210. Chronic [...] Panel Reviewed date:02/18/2023 01:51:44 PM Interpretation: Performing Lab:[facility] [place], [address] [place] [phone] Notes/Report: Triglycerides 82 <150 mg/dL Desirable Triglyceride: [...] Total Reviewed date:02/18/2023 01:51:34 PM Interpretation: Performing Lab:[facility] [place], [address] [place] [phone] Notes/Report: Vitamin D 25-OH Total 55.2 >30 [...] Random Reviewed date:02/21/2023 08:25:55 AM Interpretation: Performing Lab:[facility] [place], [address] [place] [phone] Notes/Report: Creatinine Urine 81.00 Microalbumin Urine 6.0 Microalbum/Creatinine Ratio Ur 7.4 <30 ug/mg cr Albumin/Creatinine Ratio Reference Ranges: Normal: < 30 ug/mg creatinine Microalbuminuria: 30 - 300 ug/mg creatinine Clinical Albuminuria: > 300 ug/mg creatinine Hemoglobin A1c Reviewed date:02/18/2023 01:50:07 PM Interpretation: Performing Lab:[facility] [place], [address] [place] [phone] Notes/Report: Hemoglobin A1c % 5.8 <6.0 % [...] average glucose, using the formula of the D5S-Livgbrt Average Glucose study (ADAG), Diabetes Care, Vol.31,#8, Jan. 2007 UA ClnCatch+Micro w/rflx Cul t Reviewed date:02/23/2023 03:42:59 PM Interpretation: Performing Lab:[facility] [place], [address] [place] [phone] Notes/Report: Urine, Clean Catch Color Urine Yellow Appearance Urine Clear PH 7.5 5.0-9.0 Glucose Urine UA Negative Negative mg/dL Urine Blood Negative Negative Specific [place] - Urine 1.015 1.005-1.025 Urine Protein Negative [...] Calcium Reviewed date:02/23/2023 12:29:44 PM Interpretation: Performing Lab:[facility] [place], [address] [place] [phone] Notes/Report: Calcium 9.2 8.4-10.2 mg/dL MM tomosynthesis screening B I Reviewed date:08/15/2023 05:21:34 PM Interpretation: Performing Lab: Notes/Report: [facility] [address] [place] [address] Mammography Report Signed Patient: Cristina Montero MR#: [id number] : 1940 Acct:[id number] Age/Sex: 82 / F ADM Date: 07/27/23 Loc: HO.MAMMO Attending Dr: Edin Akbar MD Ordering Physician: Edin Akbar MD Results: 1Ne gative Date of Service: 07/27/23 Follow Up: 1 Year From Orig ina Mammogram Procedure(s): MM tomosynthesis screening BI Accession Number(s): [id number] cc: Edin Akbar MD EXAMINATION: MM SCREENING [...] in OV> 08/15/23 1205 DD/ 1115 TD/TT: Coffee Host: Jerad Garcia Reviewed date:08/24/2023 11:42:04 AM Interpretation: Performing Lab:[facility] [place], [address] [place] [phone] Notes/Report: Jerad Garcia See Note Specimen held untested for 24 hours; Call to request Chemistry testing. Liver Panel Reviewed date:08/24/2023 08:41:10 PM Interpretation: Performing Lab:[facility] [place], [address] [place] [phone] Notes/Report: Bilirubin Total 0.6 0.0-1.0 mg/dL Bilirubin Direct 0.2 0.0-0.5 mg/dL Aspartate Amino Transferase 20 5-31 U/L Alanine Aminotransferase 35 0-31 U/L Total Protein 7.2 6.5-8.0 g/dL Albumin Level 4.1 3.5-5.0 g/dL Alkaline Phosphatase 63 39-117 U/L Glucose Fasting Reviewed date:08/24/2023 01:29:37 PM Interpretation: Performing Lab:[facility] [place], [address] [place] [phone] Notes/Report: Glucose Fasting 112 60-99 mg/dL A fasting glucose from 100-125 mg/dl is considered impaired (pre-diabetes). Lipid Panel with Reflex Reviewed date:08/24/2023 01:30:10 PM Interpretation: Performing Lab:[facility] [place], [address] [place] [phone] Notes/Report: Triglycerides 77 <150 mg/dL Desirable Triglyceride: [...] A1c Reviewed date:08/24/2023 12:08:46 PM Interpretation: Performing Lab:[facility] [place], [address] [place] [phone] Notes/Report: Hemoglobin A1c % 6.1 <6.0 % [...] average glucose, using the formula of the W5K-Ktzviwu Average Glucose study (ADAG), Diabetes Care, Vol.31,#8, [...] 20 MG TAKE 1 TABLET BY TRI ONCE A DAY IN THE EVENING Orally Once a day for 90 days Active Transderm-Scop (1.5 MG) 1 MG/3DAYS 1 [...] Problem Vitamin D deficiency (E55.9) Active confirmed 92645176 Problem Hypercalcemia (E83.52) Active confirmed Hypercalcemia (37589587) Problem Osteopenia (M85.80) Active confirmed 31 8963343 Problem Prediabetes (R73.09) Active confirmed 9 113744 Problem Post herpetic neuralgia (B02.29) Active confirmed 1066592 Problem Pure hypercholesterolemia (E78.00) Active confirmed 389719468 Problem Arthritis of hand (M19.049) Active confirmed Arthritis of hand (411610094) Problem 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) Active confirmed 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) Problem Condyloma acuminata (A63.0) Active confirmed Anogenital warts (209770016) Problem Arthritis of both knees (M17.0) Active confirmed Arthritis of both knees (91241312254533 08) Problem Fat deposits (E65) Active confirmed 248 259454 Problem Acute constipation (K59.00) Active confirmed 554944404 Problem Age-related cataract of both eyes, unspecified age-related cataract type (H25.9) Active confirmed 55149148 VITAL SIGNS Blood pressure diastolic 62 mm [...] Edin Akbar MD [address] [place] [id number] 02/23/2023 Edin Akbar Hypercalcemia E83.52 ; Adult general medical exam Z00.00 ; Prediabetes R73.09 ; Vitamin D deficiency E55.9 ; Condyloma acuminata A63.0 ; Pure hypercholesterolemia E78.00 ; Colon cancer screening Z12.11 and Depression screen Z13.31 Edin Akbar MD [address] [place] [address] [id number] 02/18/2023 Edin Akbar Blood tests for rout ine general physical examination Z00.00 ; Prediabetes R73.09 ; Pure hypercholesterolemia E78.00 and Vitamin D deficiency E55.9 Edin Akbar MD [address] [place] [id number] 08/24/2023 Edin Akbar Prediabetes R73.09 a nd Pure hypercholesterolemia E78.00 Edin Akbar MD [address] [place] [address] [id number] 08/31/2023 Edin Akbar Prediabetes R73.09 ; Pure hypercholesterolemia E78.00 and Acute constipation K59.00 Edin Akbar MD [address] [place] [address] [id number] 06/17/2023 Edin Akbar MD [address] [place] [id number] 11/30/2023 Edin Akbar Pre-op exam Z01.818 ; Age-related cataract of both eyes, unspecified age-related cataract type H25.9 and Prediabetes R73.09 Edin Akbar MD [address] [place] [id number] 09/30/2023 Edin Akbar MD [address] [place] [address] [id number] 11/30/2023 Edin Akbar MD [address] [place] [address] [id number] 12/13/2023 Edin Akbar Pure hypercholestero lemia E78.00 ASSESSMENTS Encounter Date Diagnosis Assessment Notes Treatment [...] unspecified age-related cataract type (ICD-10 - H25.9) 12/13/2023 Pure hypercholestero lemia (ICD-10 - E78.00) 02/23/2023 Prediabetes (ICD-10 - R73.09) doing great, [...] 02/23/2023 Condyloma acuminata (ICD-10 - A63.0) saw display manager 02/23/2023 Pure hypercholestero lemia (ICD-10 - E78.00) at goal, will continue current regiment 02/23/2023 Colon cancer screeni ng (ICD-10 - Z12.11) guaiac negative 02/23/2023 Depression screen (I CD-10 - Z13.31) negative screen PLAN OF TREATMENT Pending Test Test Name Order Date Electrocardiogram (EKG) 06/24/2012 Electrocardiogram (EKG) 10/07/2017 Electrocardiogram (EKG) 10/20/2018 Next Appt Details Provider Name:Edin Lupe Jodee ier, 02/15/2024 07:30:00 AM, [address] [place] [address], [address], [phone], Provider Name:Edin Andrade Jodee ier, 03/02/2024 02:30:00 PM, [address] [place] [address], [address], [phone], Insurance Providers Payer Name Payer Address Payer Phone Subscriber Number Group Number Insured Name Patient Relationship to Insured Coverage Start Date Coverage End Date [employer] [facility] [address] [place] [phone] [id number] Cristina Montero Self - patient is the insured [employer] [facility] [address] [facility] [place] [phone] [id number] Cristina Montero Self - patient is the insured MEDICAL (GENERAL) HISTORY Medical History History ICD Code colonoscopy - 04/13/2012 - no further w/ u necessary RESIDENTIAL TEAM LEADER, DR. Berta BLACK Mammo scheduled for 7/7/14 History of abnormal mammogram Z87.898 anal lesion needs yearly anoscopy
[2023-12-27 07:54] VITALS: BP 124/79; PULSE 70; RESP 16; TEMP 37.3; O2SAT 97
[2023-12-27] MEDS: Tetracaine HCl/PF 0.5% Oph Sol 4 ML DROPS 1 DROP EYE-LEFT (07:58)
[2023-12-27] MEDS: Cyclopentolate 1 % Ophth Sol 2 ML DRPBTL 1 DROP EYE-LEFT ×3 (07:59→08:05)
[2023-12-27] MEDS: Tropicamide 1 % Ophth Sol 3 ML BTL 1 DROP EYE-LEFT ×3 (07:59→08:05)
[2023-12-27] MEDS: Ketorolac Tromethamine 0.5% Op 10 ML DROPS 1 DROP EYE-LEFT ×3 (08:00→08:06)
[2023-12-27] MEDS: Phenylephrine HCL 2.5% Oph SoL 2 ML BOTTLE 1 DROP EYE-LEFT ×3 (08:01→08:07)
[2023-12-27] MEDS: Lactated Ringers 500 ML 50 ML IV (08:11)
--- NOTE | 2023-12-27 08:15 | P.CONAN_ITS ---
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) Past Medical History Medical History Cataracts, bilateral Thrombosed external hemorrhoid Family history of ovarian cancer AIN grade II AIN grade I COVID-19 vaccine series completed History of bursitis Arthritis History of chronic urinary tract infection Hyperlipidemia Family History Family History Daughter Ovarian cancer, Onset Age: 38 Mother Rheumatoid arthritis Surgical History Surgical History (Updated 12/22/23 @ 15:37 by Nicolette Berg RN) Hx of right cataract extraction (12/13/23) Hx of bilateral inguinal hernia repair History of knee surgery History of foot surgery Hx of colonoscopy History of Problems with Anesthesia: No Social History Social History Are you a primary child caregiver private home to a significant other at home: No Do you presently have visiting nurse or other home services: No Alcohol intake: never Patient Tobacco Use Status: Never used Tobacco Use of substances other than those prescribed or required for medical reasons: No Are you DNR?: No Advance Directives: No Advance Directives Information Provided: Yes Meds Allergies Allergy/AdvReac Type Severity Reaction Status Date / Time No Known Allergies Allergy Verified 12/13/23 10:01 Home Medications ?Medication ?Instructions ?Recorded ?Confirmed ?Last Taken ?Type simvastatin 20 mg tablet 1 tab PO BEDTIME 11/25/20 12/13/23 Unknown History cholecalciferol (vitamin D3) 25 25 mcg PO DAILY 12/07/23 12/13/23 Unknown History mcg (1,000 unit) capsule (Vitamin D3) meloxicam 15 mg tablet 15 mg PO DAILY PRN Pain 12/08/23 12/13/23 Unknown History Exam Height,Weight and Vital Signs: Height 5 ft 2 in Weight 56.699 kg Assessment and Plan Assessment Anesthesia Assessment: Chart Reviewed Final Anesthetic Review History of Problems with Anesthesia: No Documented by User: Sindi Luther DO 12/27/23 08:20 HPI - Anesthesia Eval Consult details Narrative: 83yo F for Left Cataract Extraction IOL Insertion Right eye 12/13/23: Midaz 2. Patient reported bruising on her nose from oxygen mask and was worried that the same thing will happen again. Reassured patient that she will have a nasal cannula. PMF Past Medical History Medical History Cataracts, bilateral Thrombosed external hemorrhoid Family history of ovarian cancer AIN grade II AIN grade I COVID-19 vaccine series completed History of bursitis Arthritis History of chronic urinary tract infection Hyperlipidemia Family History Family History Daughter Ovarian cancer, Onset Age: 38 Mother Rheumatoid arthritis Family history of problems with anesthesia: No Surgical History Surgical History (Updated 12/22/23 @ 15:37 by Nicolette Berg RN) Hx of right cataract extraction (12/13/23) Hx of bilateral inguinal hernia repair History of knee surgery History of foot surgery Hx of colonoscopy History of Problems with Anesthesia: No Social History Social History Are you a primary child caregiver private home to a significant other at home: No Do you presently have visiting nurse or other home services: No Alcohol intake: never Patient Tobacco Use Status: Never used Tobacco Use of substances other than those prescribed or required for medical reasons: No Are you DNR?: No Advance Directives: No Advance Directives Information Provided: Yes Meds Allergies Allergy/AdvReac Type Severity Reaction Status Date / Time No Known Allergies Allergy Verified 12/13/23 10:01 Home Medications ?Medication ?Instructions ?Recorded ?Confirmed ?Last Taken ?Type simvastatin 20 mg tablet 1 tab PO BEDTIME 11/25/20 12/13/23 Unknown History cholecalciferol (vitamin D3) 25 25 mcg PO DAILY 12/07/23 12/13/23 Unknown History mcg (1,000 unit) capsule (Vitamin D3) meloxicam 15 mg tablet 15 mg PO DAILY PRN Pain 12/08/23 12/13/23 Unknown History Exam Exam Date and Time: December 27, 2023 0815 Height,Weight and Vital Signs: Height 5 ft 2 in Weight 56.699 kg Vital Signs Temperature 99.2 F 12/27/23 07:54 Pulse Rate 70 12/27/23 07:54 Respiratory Rate 16 12/27/23 07:54 Blood Pressure 124/79 12/27/23 07:54 Pulse Oximetry 97 12/27/23 07:54 Oxygen Delivery Method Room Air 12/27/23 07:54 Temperature 99.2 F 12/27/23 07:54 Pulse Rate 70 12/27/23 07:54 Respiratory Rate 16 12/27/23 07:54 Blood Pressure 124/79 12/27/23 07:54 Pulse Oximetry 97 12/27/23 07:54 Oxygen Delivery Method Room Air 12/27/23 07:54 Airway Mallampati Class: II TM Dist: >3cm Neck ROM: Full Loose/Missing/Broken Teeth: No (patient denies any loose or broken teeth) Heart: S1S2 Lungs: CTAB Assessment and Plan Assessment Anesthesia Assessment: Anesthesia Plan Discussed and Chart Reviewed Final Anesthetic Review Family History of Problems with Anesthesia: No History of Problems with Anesthesia: No NPO: Yes ASA Class: II Final Preanesthetic Review: No Changes in Pt Med Stat, Meds/Allgs Chart Reviewed, Consent Obtained/Reviewed and Anes Risks/Benef Reviewed Patient Risk: Low Procedure Risk: Low Anesthetic Plan Anesthetic Plan: MAC: and Agree w/ Assess. and Plan Disposition: Standard PACU
--- NOTE | 2023-12-27 08:49 | MHC.SHP ---
Pre-Procedural Eval Section A - 24 Hr Update-Section A only Date of Service: 12/27/23 The patient is an INPATIENT: No Changes since office visit: No Cold of Flu in the past 2 weeks, No New Medical Problems, No Changes in Medication and No Patient answered all questions The patient has been examined within 24 hours of the surgical procedure. The History & Physical has been completed within 30 days and I have reviewed it.: Yes Section B - Complete if H&P > 30 days Chief Complaint: Age-related nuclear cataract, left eye Allergies: Allergies Allergy/AdvReac Type Severity Reaction Status Date / Time No Known Allergies Allergy Verified 12/13/23 10:01 Plan Diagnosis/Plan: Unchanged I have reviewed the history and physical and performed a pertinent physical examination on my patient. No changes have occurred unless specified. Time Spent With Patient Time: Total time managing care of this patient today ____ minutes.
--- NOTE | 2023-12-27 08:49 | HO.PNOPHT ---
Ophthalmology Procedure Procedure Date of Service: 12/27/23 Ophthalmology Viscoelastic: Healon Duet Dual Pack Pro Ophthalmology Lenses: IOL Acrysof MP - MA60AC (24) Procedure Notes: PREOPERATIVE DIAGNOSIS: Decreased visual acuity left eye secondary to cataract POSTOPERATIVE DIAGNOSIS: Same PROCEDURE: Left cataract extraction with intraocular lens insertion SURGEON: Iron Jacob M.D. ANESTHESIA: Topical/MAC ESTIMATED BLOOD LOSS: None COMPLICATIONS: None After obtaining informed consent, the patient was brought to the operation room suite and placed in the supine position. After adequate sedation per anesthesia, topical drops of Tetracaine were given to the left eye. The eye was then prepped and draped in the usual sterile fashion. The operating room microscope was then positioned over the operative eye and a lid speculum placed. A paracentesis was created. Viscoelastic was then instilled into the anterior chamber. A three plane incision was then created temporally, utilizing a 2.85 mm keratome. Capsulotomy forceps were then utilized to create a circular tear capsulotomy. Hydrodissection and hydrodelineation were carried out until adequate mobilization of the nucleus occurred. Phacoemulsification was then utilized to remove the dense central nucleus followed by removal of the cortical material utilizing the automated aspiration irrigation unit. Viscoat elastic was instilled into the posterior capsular bag followed by placement of a posterior chamber intraocular lens without difficulty. The residual Viscoat elastic was then removed utilizing the automated IA machine. The wound was check and found to be watertight. The patient tolerated the procedure well and the lid speculum was removed. Intracameral injection of Vigamox 0.1 mL followed by a subtenon injection of Kenalog-40 0.2 mL were administered. The patient will be seen in the a.m.
[2023-12-27 09:29] VITALS: BP 117/52; PULSE 64; RESP 16; TEMP 36.6; O2SAT 95
== END 2023-12-27 09:55 | disposition home or self-care (01) ==
PROVIDERS: PCP Internal Medicine; Visit Provider Ophthalmology
PROC: (CPT 66985; principal; 2023-12-27 08:50)
DX: H25.12 Age-related nuclear cataract, left eye (principal); H54.7 Unspecified visual loss; H04.123 Dry eye syndrome of bilateral lacrimal glands; H18.413 Arcus senilis, bilateral; E78.00 Pure hypercholesterolemia, unspecified; R73.09 Other abnormal glucose; Z79.899 Other long term (current) drug therapy
CPT/HCPCS: 66984; J2250; J3010; J3301; V2630

== ENCOUNTER 2023-12-31 15:22 | Outpatient (REF) | payer MEDICARE, SELFPAY ==
[2023-12-31 15:25] LABS: MANUAL DIFF FLAG NO
[2023-12-31 15:29] LABS: Basophils Absolute Auto 0.1 X10*3/uL (0.0-0.2); Basophils Percent Auto 0.8 % (0-2); Eosinophils Absolute Auto 0.1 X10*3/uL (0.0-0.4); Eosinophils Percent Auto 1.2 % (0-4); Hematocrit 42.7 % (37.0-47.0); Hemoglobin 13.9 g/dl (12.0-16.0); Imm Gran Abs Auto 0.03 X10*3/uL (0.00-0.03); Imm Gran Pct Auto 0.3 % (0.0-0.4); Lymphocytes Percent Auto 17.7 % (20-40); Mean Corpuscular HGB Conc 32.6 g/dl (31.0-35.0); Mean Corpuscular Hemoglobin 29.9 pg (27.0-33.0); Mean Corpuscular Volume 91.8 fL (80.0-98.0); Mean Platelet Volume 10.5 fL (9.4-12.3); Monocytes Absolute Auto 1.2 X10*3/uL (0.1-1.2); Monocytes Percent Auto 10.8 % (2-11); Neutrophils Absolute Auto 7.6 x10*3/uL (2.0-8.3); Neutrophils Percent Auto 69.2 % (45-73); Platelet Count 359 X10*3/uL (160-400); Red Blood Count 4.65 X10*6/uL (4.20-5.50); Red Cell Distribution Width 12.8 % (11.0-16.0)
[2024-01-01 00:52] LABS: Alanine Aminotransferase 27 U/L (0-31); Albumin Level 4.4 g/dL (3.5-5.0); Alkaline Phosphatase 67 U/L (39-117); Anion Gap 14 (12-20); Aspartate Amino Transferase 24 U/L (5-31); Bilirubin Total 0.3 mg/dL (0.0-1.0); Blood Urea Nitrogen 25 mg/dL (9-16); Calcium 9.5 mg/dL (8.4-10.2); Carbon Dioxide 24 mmol/L (22-29); Chloride 103 mmol/L (96-108); Estimated Glomerular Filt Rate > 60; Glucose Fasting 115 mg/dL (60-99); Potassium 4.3 mmol/L (3.3-5.1); Sodium 137 mmol/L (135-145); Total Protein 7.3 g/dL (6.5-8.0)
== END 2023-12-31 15:23 | disposition home or self-care (01) ==
LOC: HO.LNP 15:22
PROVIDERS: Visit Provider Internal Medicine
DX: K52.9 Noninfective gastroenteritis and colitis, unspecified (principal)
CPT/HCPCS: 80053; 85025

== ENCOUNTER 2024-01-06 14:38 | Outpatient (REF) | payer MEDICARE, SELFPAY ==
[2024-01-06 17:04] LABS: Adenovirus F 40/41 Not Detected (Not Detect.); Astrovirus Not Detected (Not Detect.); Campylobacter Not Detected (Not Detect.); Cryptosporidium Not Detected (Not Detect.); Cyclospora cayetanensis Not Detected (Not Detect.); E. coli EAEC Not Detected (Not Detect.); E. coli EPEC Not Detected (Not Detect.); E. coli ETEC Not Detected (Not Detect.); E. coli STEC Not Detected (Not Detect.); Entamoeba histolytica Not Detected (Not Detect.); Giardia lamblia Not Detected (Not Detect.); Norovirus GI/GII Not Detected (Not Detect.); Plesiomonas shigelloides Not Detected (Not Detect.); Rotavirus A Not Detected (Not Detect.); Salmonella Not Detected (Not Detect.); Sapovirus Not Detected (Not Detect.); Shigella sp./EIEC Not Detected (Not Detect.); Vibrio Not Detected (Not Detect.); Vibrio Cholerae Not Detected (Not Detect.); Yersinia enterocolitica Not Detected (Not Detect.)
== END 2024-01-06 14:39 | disposition home or self-care (01) ==
LOC: HO.LNP 14:38
PROVIDERS: Visit Provider Internal Medicine
DX: K52.9 Noninfective gastroenteritis and colitis, unspecified (principal)
CPT/HCPCS: 87507

== ENCOUNTER 2024-01-21 10:37 | Outpatient (REF) | payer MEDICARE, SELFPAY ==
[2024-01-21 11:15] LABS: Blood Urea Nitrogen 18 mg/dL (9-16)
== END 2024-01-21 10:38 | disposition home or self-care (01) ==
LOC: HO.LNP 10:37
PROVIDERS: Visit Provider Internal Medicine
DX: R79.9 Abnormal finding of blood chemistry, unspecified (principal)
CPT/HCPCS: 84520

== ENCOUNTER 2024-01-27 08:00 | Outpatient (RCR) | payer MEDICARE, SELFPAY ==
--- NOTE | 2024-01-13 15:00 | MHC.PT.EP ---
[facility] [place] Office [place] Office [place] Office [address] Sebastian Nagel [address] [phone] F: [phone] F: [phone] F: [phone] F: [phone] Physical Therapy Plan of Care Date of Evaluation: 01/13/24 Date of Surgery: Diagnosis: DEGENERATIVE CERVICAL DISC Assessment: 83 YO FEMALE REF TO PT W A LONG H/O PROGRESSIVE CERVICAL PAIN OVER 20 YRS - SHE ALSO HAS RECENT Rt SH IRRITABILITY DUE TO AGGRESSIVE YARDWORK. THE Pt HAS DECR POSTURAL AWARENESS W (+) LUMBOSACRAL ASYMM, LIMITED CERV AROM, (+) STRENGTH DEFICITS IN CERV PS/ POST RC / SCAP MM, (+) NEER'S SIGN Rt, AND FLUCTUATING PAIN W OCCAS RADIATION INTO Rt > Lt DELTOID. SHE IS RIGHT HAND DOMINANT. SKILLED PT IS INDICATED TO REDUCE CERV/ Rt UE PAIN AND MUSCLE TENSION, IMPROVE POSTURE AND HER SELF-CORRECTION OF BODY MECH TO REDUCE CERV STRESS, AND NORMALIZE AROM IN CERV REGION. THE Pt IS IN AGREEMENT W POC AND APPEARS MOTIVATED TO ADDRESS THE ABOVE FINDINGS. Frequency and Duration: The patient will be seen 1 X wk X 5 wks Short Term Goals: DECR CERVICAL, Rt SH SXS TO 2-3/10 AT MAX Pt INDEP W SELF POSTURAL CORRECTION INITIATE HEP-> RESOLVE HABITUAL UT COMPENSATORY OVERUSE AND ACTIVATE SCAP RETR/ DEPR IMPROVE CERVICAL AROM Mcc Goals: *Pt INDEP W PROGR HEP AND SELF-SX MGMT TECHN Pt RESUME REG ADLs / FITNESS WALKING , EVIDENT W IMPROVED NPDI SCORE (AT EVAL 16/50) Pt INCR UE / POST RC STRENGTH BY 1 GRADE WHERE APPLICABLE Treatment Plan: Modalities to reduce pain, spasms and effusion. Manual therapy to restore motion and function. Therapeutic exercise to improve strength and flexibility. Neuromuscular re-education for posture and balance. Therapeutic activities to return to functional activities of daily living. Electronically signed by: ARNIE MICHEL,PT Please sign and return to therapist. Thank you for your referral.
--- NOTE | 2024-04-13 15:02 | MHC.PT.DC ---
[facility] [place] Office [place] Office [place] Office [address] Sebastian Nagel 140 [facility] [phone] F: [phone] F: [phone] F: [phone] F: [phone] Physical Therapy Discharge Report Diagnosis: DEGENERATIVE CERVICAL DISC Date of Surgery: Date of Evaluation: 01/13/24 Date of Discharge: 04/13/24 Treatments to Date: 3 Cancellations to Date: 2 No Shows to Date: 0 Discharge Status: Improved Function Patient Elected to Stop Recommend MD Follow-up Discharge Summary: THE Pt BENEFITTED FROM PT, WE INITIATED A HEP- SHE CANC HER LAST 2 APPTS, SO A REASSESSMENT WAS NOT PERF- SHE DID NOT MEET HER PT GOALS Electronically signed by: ARNIE MICHEL, PT Please sign and return to therapist. Thank you for your referral.
== END 2024-04-13 15:02 | disposition home or self-care (01) ==
LOC: HO.PT 08:00
PROVIDERS: PCP Internal Medicine; Visit Provider Student in an Organized Health Care Education/Training Program
DX: M50.30 Other cervical disc degeneration, unspecified cervical region (principal)
CPT/HCPCS: 97110; 97140; 97162

== ENCOUNTER 2024-02-15 12:15 | Outpatient (REF) | payer MEDICARE, SELFPAY ==
[2024-02-15 12:19] LABS: MANUAL DIFF FLAG NO
[2024-02-15 12:42] LABS: Basophils Percent Auto 0.3 % (0-2); Eosinophils Absolute Auto 0.1 X10*3/uL (0.0-0.4); Hematocrit 45.9 % (37.0-47.0); Hemoglobin 14.8 g/dl (12.0-16.0); Imm Gran Abs Auto 0.06 X10*3/uL (0.00-0.03); Imm Gran Pct Auto 0.5 % (0.0-0.4); Lymphocytes Absolute Auto 2.1 X10*3/uL (1.2-4.9); Lymphocytes Percent Auto 17.8 % (20-40); Mean Corpuscular HGB Conc 32.2 g/dl (31.0-35.0); Mean Corpuscular Hemoglobin 29.2 pg (27.0-33.0); Mean Corpuscular Volume 90.7 fL (80.0-98.0); Mean Platelet Volume 10.3 fL (9.4-12.3); Monocytes Absolute Auto 1.3 X10*3/uL (0.1-1.2); Monocytes Percent Auto 11.5 % (2-11); Neutrophils Percent Auto 68.9 % (45-73); Platelet Count 338 X10*3/uL (160-400); Red Blood Count 5.06 X10*6/uL (4.20-5.50); White Blood Count 11.6 X10*3/uL (4.8-10.8)
[2024-02-15 12:53] LABS: Estimated Average Glucose 131 mg/dL; Hemoglobin A1c % 6.2 % (<6.0)
[2024-02-15 12:57] LABS: Alanine Aminotransferase 29 U/L (0-31); Albumin Level 4.3 g/dL (3.5-5.0); Alkaline Phosphatase 69 U/L (39-117); Anion Gap 13 (12-20); Aspartate Amino Transferase 24 U/L (5-31); Bilirubin Total 0.6 mg/dL (0.0-1.0); Blood Urea Nitrogen 21 mg/dL (9-16); Carbon Dioxide 26 mmol/L (22-29); Chloride 106 mmol/L (96-108); Cholesterol 195 mg/dL (<200); Estimated Glomerular Filt Rate > 60; Glucose Fasting 100 mg/dL (60-99); HDL Cholesterol 76 mg/dL (>40); LDL Cholesterol Calculated 100 mg/dL (<100); Potassium 4.4 mmol/L (3.3-5.1); Sodium 141 mmol/L (135-145); Total Protein 7.5 g/dL (6.5-8.0); Triglycerides 96 mg/dL (<150)
[2024-02-15 13:02] LABS: Appearance Urine Turbid; Color Urine Yellow; Glucose Urine UA Negative (Negative); Leukocyte Esterase Urine Large (3+) (Negative); Nitrite Urine Positive (Negative); UMIC TRIGGER UACC YES; Urine Blood Small (1+) (Negative); Urine Ketones Negative (Negative); Urine Protein 30 (1+) mg/dL (Neg-Trace)
[2024-02-15 13:21] LABS: Bacteria Urine 4+ (None Seen); Hyaline Casts Urine 0-2 /LPF (0-2); RBC Urine 0-2 /HPF (0-2); UACC Culture Trigger YES; WBC Clumps Urine Present; WBC Urine >50 /HPF (0-5)
[2024-02-15 18:50] LABS: Creatinine Urine 120.18 mg/dL; Microalbum/Creatinine Ratio Ur 79.8 ug/mg cr (<30)
== END 2024-02-15 12:16 | disposition home or self-care (01) ==
LOC: HO.LNP 12:15
PROVIDERS: Visit Provider Internal Medicine
DX: Z00.00 Encounter for general adult medical examination without abnormal findings (principal); R73.09 Other abnormal glucose; E78.00 Pure hypercholesterolemia, unspecified; E83.52 Hypercalcemia; R82.79 Other abnormal findings on microbiological examination of urine
CPT/HCPCS: 80053; 80061; 81001; 82043; 82570; 83036; 85025; 87086; 87088; 87186

== ENCOUNTER 2024-03-02 16:41 | Outpatient (REF) | payer MEDICARE, SELFPAY ==
[2024-03-02 17:31] LABS: Appearance Urine Clear; Color Urine Yellow; Glucose Urine UA 250 mg/dL (Negative); Leukocyte Esterase Urine Trace (Negative); Nitrite Urine Negative (Negative); PH 6.5 (5.0-9.0); Specific Gravity - Urine 1.015 (1.005-1.025); UMIC TRIGGER UACC YES; Urine Blood Negative (Negative); Urine Ketones Negative (Negative); Urine Protein Negative (Neg-Trace)
[2024-03-02 17:36] LABS: Bacteria Urine None Seen (None Seen); Hyaline Casts Urine 0-2 /LPF (0-2); RBC Urine 0-2 /HPF (0-2); Squamous Epithelial Cell Urine 0-2 /HPF (0-2); WBC Urine 0-5 /HPF (0-5)
== END 2024-03-02 16:42 | disposition home or self-care (01) ==
LOC: HO.LNP 16:41
PROVIDERS: Visit Provider Internal Medicine
DX: Z23 Encounter for immunization (principal)
CPT/HCPCS: 81001; 81003

== ENCOUNTER 2024-06-09 15:10 | Outpatient (REF) | payer MEDICARE, SELFPAY ==
[2024-06-09 15:19] LABS: Appearance Urine Clear; Color Urine Yellow; Glucose Urine UA 250 mg/dL (Negative); Leukocyte Esterase Urine Trace (Negative); Nitrite Urine Negative (Negative); PH 6.5 (5.0-9.0); Specific Gravity - Urine <= 1.005 (1.005-1.025); UMIC TRIGGER UACC YES; Urine Blood Negative (Negative); Urine Ketones Negative (Negative); Urine Protein Negative (Neg-Trace)
[2024-06-09 15:24] LABS: Bacteria Urine None Seen (None Seen); Hyaline Casts Urine 0-2 /LPF (0-2); RBC Urine 0-2 /HPF (0-2); Squamous Epithelial Cell Urine 0-2 /HPF (0-2); WBC Urine 0-5 /HPF (0-5)
== END 2024-06-09 15:11 | disposition home or self-care (01) ==
LOC: HO.LNP 15:10
PROVIDERS: Visit Provider Internal Medicine
DX: Z51.89 Encounter for other specified aftercare (principal)
CPT/HCPCS: 81001

== ENCOUNTER 2024-08-01 12:29 | Outpatient (REF) | payer MEDICARE, SELFPAY ==
--- OUTSIDE RECORDS SUMMARY | 2024-08-01 13:20 | XMS_ITS ---
Author Organization Edin Akbar MD Address [address] [place], [place] [phone] Care Team Providers Care Nurse Research Name Role Phone Edin Akbar Primary Care Provider Allergies No Known Allergies Results Component Value Reference Range Notes UA ClnCatch+Micro w/rflx Cul t Reviewed date:06/09/2024 04:26:43 PM Interpretation: Performing Lab:[facility], [address] [place] [phone] Notes/Report: Urine, Clean Catch Color Urine Yellow Appearance Urine Clear PH 6.5 5.0-9.0 Glucose Urine UA 250 Negative mg/dL Urine Blood Negative Negative Specific Crum - Urine <= 1.005 1.005-1.025 Urine Protein Negative Neg-Trace mg/dL Urine Ketones Negative Negative mg/dL Nitrite Urine Negative Negative Leukocyte Esterase Urine Trace Negative RBC Urine 0-2 0-2 /HPF WBC Urine 0-5 0-5 /HPF Squamous Epithelial Cell Urine 0-2 0-2 /HPF Bacteria Urine None Seen None Seen Hyaline Casts Urine 0-2 0-2 /LPF REASON FOR VISIT F/U ERV Bronchitis and UTI, Accompanied by ej PEÑALOZA Medications Medication SIG (Take, Route, Frequency, Duration) Notes Start Date End Date Status Meclizine HCl 25 MG 1 tablet as needed Orally twicee a day for 10 Not-Taking Flonase 50 MCG/ACT 1 spray in each nost ril Nasally Once a day for 30 days 09/09/2015 Not-Taking Diflucan 100 MG once a dsa Orally on ce a day for 5 days 04/19/2020 Not-Taking Transderm-Scop (1.5 MG) 1 MG/3DAYS 1 patch to skin as needed Transdermal every 3 days for 14 days 08/07/2016 Not-Taking Calcium 600 MG 1 tablet with meals Orally Twice a day for 30 day(s) Not-Taking predniSONE 10 MG 1 tablet with food o r milk Orally 4 tabs for 3 days,3tabs for 3 days, 2 tabs for 3 days, and 1 tab for 3 days for 14 days 06/09/2024 Active Simvastatin 20 MG TAKE 1 TABLET BY TRI TH ONCE A DAY IN THE EVENING Orally Once a day Active Vitamin D 1000 UNIT 1 tablet Orally Once a day 09/11/2015 Active Vital Signs Blood pressure systolic 138 mm Hg 06/09/20 24 Blood pressure diastolic 72 mm Hg 024 Height 62 in 06/09/2024 Weight 128 lbs 06/09/2024 BMI 23.41 kg/m2 06/09/2024 Encounters Encounter Location Date Provider Diagnosis Edin Akbar MD [address] [place] [address] [place] [phone] 06/09/2024 Edin Akbar After-treatment Z51.89 ; Lung nodules R91.8 ; Viral bronchitis J20.8 and Acute UTI N39.0 Assessments Encounter Date Diagnosis (ICD Code) Assessment Notes Treatment Notes Treatment Clinical Notes Section Notes 06/09/2024 After-treatment (ICD-10 - Z51.89) 06/09/2024 Lung nodules (ICD-10 - R91.8) CT of chest ordered to monitor 06/09/2024 Viral bronchitis (ICD-10 - J20.8) Ct chest order will be [place] [facility] [place] after auth is done, patient verbalized understanding of medication and directions for use 06/09/2024 Acute UTI (ICD-10 - N39.0) ordered a repeat u/a and c/s to determine if there is an infection Plan Of Treatment Medication Medication Name Sig Start Date Stop Date Notes predniSONE 10 MG 1 tablet with food o r milk Orally 4 tabs for 3 days,3tabs for 3 days, 2 tabs for 3 days, and 1 tab for 3 days for 14 days 06/09/2024 Treatment Notes Assessment Notes Lung nodules CT of chest ordered to monitor Viral bronchitis Ct chest order will be faxed to [facility] [place] after auth is done, patient verbalized understanding of medication and directions for use Acute UTI ordered a repeat u/a and c/s to determine if there is an infection Pending Test Test Name Order Date Urinalysis and Microscopic 06/09/2024 Urine Culture 06/09/2024 Future Test Test Name Order Date CT chest wo con 09/07/2024 Next Appt Details Provider Name:Edin pineda, 08/31/2024 07:45:00 AM, [address] [place] [address], [address], [phone], Provider Name:Edin pineda, 09/07/2024 09:00:00 AM, [address] [place] [address], [address], [phone], Provider Name:Edin pineda, 03/01/2025 07:00:00 AM, [address] [place] [address], [address], [phone], Provider Name:Edin pineda, 03/08/2025 08:30:00 AM, [address] [place] [address], [address], [phone], Progress Notes * Cristina MONTERODOB:1940 (83 yo F)Acc No.[id number]:06/09/2024 Progress Notes Patient:?Cristina Montero Provider:?Edin Akbar MD :1940???Age:83 Y???Sex:Female D ate:06/09/2024 Address:[address] [place], [place] [phone] Subjective: * Chief Complaints: * ???F/U ERV Bronchitis and UT IAccompanied by ej PEÑALOZA * HPI: ???Symptom(s):? patient is a 83 yo female here for follow up from recent ER visit, has been coughing and had gotten better on prednisone and then came back. got a dose of decadron in er and is better. using an inhaler and getting some help/ had chest xray and showed nodules. * ROS:?General/Constitutional:?Denies?Chills.?Denies?Fatigue.?Denies?Fever.?Denies?Headache.?ENT:?Patient denies?decreased sense of smell , any loss of taste , sore throat.?Denies?Sore throat.?Respiratory:?Admits?Cough.?Denies?Shortness of breath at rest.?Denies?Shortness of breath with exertion.?Denies?Sputum production.?Gastrointestinal:?Denies?Diarrhea.?Denies?Nausea.?Genitourinary:?Admits?Abdominal pain/swelling.?Admits?Frequent urination.?Musculoskeletal:?Patient denies?muscle aches.?Peripheral Vascular:?Patient denies?ulceration of feet , red and blue toes.? * Medical History:? * Surgical History:? * Hospitalization/Major Diagno stic Procedure:? * Medications:?TakingSimvastat in 20 MG Tablet TAKE 1 TABLET BY MOUTH ONCE A DAY IN THE EVENING Orally Once a dayVitamin D 1000 UNIT Tablet 1 tablet Orally Once a dayTaking Simvastatin 20 MG Tablet TAKE 1 TABLET BY MOUTH ONCE A DAY IN THE EVENING Orally Once a dayTaking Vitamin D 1000 UNIT Tablet 1 tablet Orally Once a dayNot-Taking/PRNCalcium 600 MG Tablet 1 tablet with meals Orally Twice a dayDiflucan 100 MG Tablet once a dsa Orally once a dayMeclizine HCl 25 MG Tablet 1 tablet as needed Orally twicee a dayFlonase 50 MCG/ACT Suspension 1 spray in each nostril Nasally Once a dayTransderm-Scop (1.5 MG) 1 MG/3DAYS Patch 72 Hour 1 patch to skin as needed Transdermal every 3 daysNot-Taking/PRN Calcium 600 MG Tablet 1 tablet with meals Orally Twice a dayNot-Taking/PRN Diflucan 100 MG Tablet once a dsa Orally once a dayNot-Taking/PRN Meclizine HCl 25 MG Tablet 1 tablet as needed Orally twicee a dayNot-Taking/PRN Flonase 50 MCG/ACT Suspension 1 spray in each nostril Nasally Once a dayNot-Taking/PRN Transderm-Scop (1.5 MG) 1 MG/3DAYS Patch 72 Hour 1 patch to skin as needed Transdermal every 3 daysDiscontinuedMeloxicam 15 MG Tablet 1 tablet Orally Once a dayOcuflox 0.3 % Solution as directed Ophthalmic 4 times a dayMedication List reviewed and reconciled with the patientDiscontinued Meloxicam 15 MG Tablet 1 tablet Orally Once a dayDiscontinued Ocuflox 0.3 % Solution as directed Ophthalmic 4 times a dayMedication List reviewed and reconciled with the patient * Allergies:?N.K.D.A.yes[Aller gies Verified] Objective: * Vitals:?Ht: 62, Wt:128, BMI: 23.41, BP:138/72. * Examination: ???General Examination: ?GENERAL APPEARANCE:?alert, well hydrated, in no distress.?SKIN:?good turgor.?HEART:?regular rate and rhythm , no murmurs, rubs, gallops.?LUNGS:?no wheezes, rales, rhonchi , good air movement , clear to auscultation bilaterally.? Assessment: * Assessment: 1.?After-treatment - Z51.89 (Primary)?2.?Lung nodules - R91.8?3.?Viral bronchitis - J20.8?4.?Acute UTI - N39.0? Plan: * Treatment: 2.?Lung nodules? Notes: CT of chest ordered to monitor?? 3.?Viral bronchitis? Start predniSONE Tablet, 10 MG, 1 tablet with food or milk, Orally, 4 tabs for 3 days,3tabs for 3 days, 2 tabs for 3 days, and 1 tab for 3 days, 14 days, 30, Refills 0.?? Notes: Ct chest order will be faxed to [facility] [place] after auth is done, patient verbalized understanding of medication and directions for use?? 4.?Acute UTI? Notes: ordered a repeat u/a and c/s to determine if there is an infection?? * Procedure Codes:? * * Sign off status: Completed true * Provider:?Edin Akbar MD Date:?1 08/10/2023 Generated for Nelia suh/Christopher/eTransmitting on:?08/01/2024 01:20 PM EST History and Physical Notes * HPI (History of Present Illness) Category Sub-Category Detail Notes Category Not es Symptom(s) patient is a 83 yo female here for follow up from recent ER visit, has been coughing and had gotten better on prednisone and then came back. got a dose of decadron in er and is better. using an inhaler and getting some help/ had chest xray and showed nodules Examination Category Sub-Category Detail Notes Category Not es General Examination GENERAL APPEARANCE: alert, w ell hydrated, in no distress HEART: regular rate and rhy thm , no murmurs, rubs, gallops LUNGS: no wheezes, rales, r honchi , good air movement , clear to auscultation bilaterally SKIN: good turgor
--- OUTSIDE RECORDS SUMMARY | 2024-08-01 13:20 | XMS_ITS ---
Author Organization Edin Akbar MD Address 10 [facility] [address] [place] [phone] Care Team Providers Care Immunochemist Name Role Phone Edin Akbar Primary Care Provider Medications Medication SIG (Take, Route, Fr equency, Duration) Notes Start Date End Date Status Cephalexin 250 MG 1 capsule Orally 3 t imes for 7 days 06/12/2024 Active Encounters Encounter Location Date Provider Diagnosis Edin Akbar MD 10 [facility] [address] [place] [phone] 06/12/2024 Edin Akbar Plan Of Treatment Medication Medication Name Sig Start Date Stop Date Notes Cephalexin 250 MG 1 capsule Orally 3 times for 7 days 05/16 Next Appt Details Provider Name:Edin pineda, 08/31/2024 07:45:00 AM, [facility], Suite [facility], [place], [place], [phone], Provider Name:Edin pineda, 09/07/2024 09:00:00 AM, [address] [place] [address], [address] [place] [address], [phone], Provider Name:Edin pineda, 03/01/2025 07:00:00 AM, [address] [place] [address], [address] [place] [address], [phone], Provider Name:Edin Ellsworth edwin, 03/08/2025 08:30:00 AM, [address], [address], [place], [phone], Progress Notes * ARIANNA EsvinsakinaDOB:1940 (83 yo F)Acc No.[id number]:06/12/2024 Patient:?Cristina Montero :1940???Age:83 Y???Sex:Female Address:[address] [place] [address] [place] [address] * Refills? Start Cephalexin Capsule, 250 MG, Orally, 21, 1 capsule, 3 times, 7 days * true * Date:? Generated for Nelia suh/Christopher/Nitinsmitting on:?08/01/2024 01:20 PM EST
--- OUTSIDE RECORDS SUMMARY | 2024-08-01 13:20 | XMS_ITS ---
Author Organization [facility] Address [address] [place] [address] Care Team Providers Care Auto Damage Adjuster Name Role Phone Edin Akbar MD Primary Care Provider Lane Can [phone] ALLERGIES Allergen (clinical drug ingredient) Drug/Non Drug Allergy documented on EMR Reaction Allergy Type Onset Date Status Steroid steroid (uncoded) Unknown Allergy Ac tive REASON FOR VISIT Patient presents today for diarrhea MEDICATIONS Medication SIG (Take, Route, Frequency, Duration) Notes Start Date End Date Status Simvastatin 10mg Act ryne Loperamide-Simethicone 2-125 MG as directed Orally prn Active Calcium 500mg Active IMMUNIZATIONS Vaccine Route Administration Date Status Comme nts Influenza Unknown 02/23/2024 Refused PROBLEMS Problem Type ICD Code Onset Dates Problem Status W/U Status Risk SNOMED Code Notes Problem Acute gastroenteritis (K52.9) Active confirmed Acute gastroenteritis (45430045) VITAL SIGNS BMI 22.77 kg/m2 02/23/2024 Blood pressure systolic 000 mm Hg 02/23/20 24 Blood pressure diastolic 00 mm Hg 024 Height 62 in 02/23/2024 Temperature 97.7 degrees Fahrenheit 02/23/20 24 Weight 124 lb 8 oz lbs 02/23/2024 Encounters Encounter Location Date Provider Diagnosis [facility] [address] [place] [address] 02/23/2024 Lane Gracia Acute gastroenteriti s K52.9 ASSESSMENTS Encounter Date Diagnosis Assessment Notes Treatment Notes Treatment Clinical Notes 02/23/2024 Acute gastroenteriti s (ICD-10 - K52.9) Observe, eat healthy with fruits/vegetable s/etc. Call me if problems PLAN OF TREATMENT Treatment Notes Assessment Notes Acute gastroenteritis Observe, eat healt hy with fruits/vegetables/etc. Call me if problems Next Appt Details Follow Up: prn, Reason: Progress Notes * Examination Category Sub-Category Detail Notes General Examination GENERAL APPEARANCE: pleasant , well nourished, well developed, in no acute distress EYES: sclera non-icteric NECK/THYROID: no cervical lymphade nopathy, neck supple HEART: S1, S2 normal LUNGS: clear to auscultatio n bilaterally ABDOMEN: normal bowel sounds, no guarding or rigidity, no hepatosplenomegaly, no masses palpable, soft, nontender, nondistended. NEUROLOGIC: alert and oriented SKIN: nonjaundiced, no spi gonzales angiomata. EXTREMITIES: no edema ORAL CAVITY: mucosa moist
--- OUTSIDE RECORDS SUMMARY | 2024-08-01 13:21 | XMS_ITS ---
Author Organization Edin Akbar MD Address 10 [facility] [address] [place] [phone] Care Team Providers Care Equipment Maintenance Engineer Name Role Phone Edin Akbar Primary Care Provider Encounters Encounter Location Date Provider Diagnosis Edin Akbar MD 10 [facility] [address] [place] [phone] 07/14/2024 Edin Akbar Plan Of Treatment Next Appt Details Provider Name:Edin pineda, 08/31/2024 07:45:00 AM, [address] [place] [address], [address], [phone], Provider Name:Edin Ellsworth ier, 09/07/2024 09:00:00 AM, [address] [place] [address], [address] [place] [address], [phone], Provider Name:Edin pineda, 03/01/2025 07:00:00 AM, [address] [place] [address], [address], [phone], Provider Name:Edin pineda, 03/08/2025 08:30:00 AM, [address] [place] [address], [address], [phone], Progress Notes * Cristina MONTERODOB:1940 (83 yo F)Acc No.[id number]:07/14/2024 Patient:?Cristina MONTERO :1940???Age:83 Y???Sex:Female Address:[address] [place] [address] * true * Date:? Generated for Nelia suh/Christopher/eTransmitting on:?08/01/2024 01:21 PM EST
--- OUTSIDE RECORDS SUMMARY | 2024-08-01 13:21 | XMS_ITS ---
Author Organization [facility] Address [address] [place] [address] Care Team Providers Care Insurance Compliance Analyst Name Role Phone Edin Akbar MD Primary Care Provider Lane Can [phone] REASON FOR VISIT diarrhea Encounters Encounter Location Date Provider Diagnosis [facility] [address] [place] [address] 05/16/2024 [address] Gracia PLAN OF TREATMENT No Information
--- OUTSIDE RECORDS SUMMARY | 2024-08-01 13:21 | XMS_ITS | Patient Health Record ---
Author Organization [facility] Address [address] [place] [phone] Care Team Providers Care Chucking Lathe Operator Name Role Phone Edin Akbar MD Primary Care Provider Lane Can [phone] ALLERGIES Allergen (clinical drug ingredient) Drug/Non Drug Allergy documented on EMR Reaction Allergy Type Onset Date Status Steroid steroid (uncoded) Unknown Allergy Ac tive REASON FOR REFERRAL No Information MEDICATIONS Medication SIG (Take, Route, Frequency, Duration) Notes Start Date End Date Status Simvastatin 10mg Act ryne Loperamide-Simethicone 2-125 MG as directed Orally prn Active Calcium 500mg Active IMMUNIZATIONS Vaccine Route Administration Date Status Comme nts Influenza Unknown 10/15/2020 Refused Influenza Unknown 02/23/2024 Refused SOCIAL HISTORY Sex Assigned At : Social History Observation Description Sex Assigned At Unknown PROBLEMS Problem Type ICD Code Onset Dates Problem Status W/U Status Risk SNOMED Code Notes Problem Encounter for screening for malignant neoplasm of colon (Z12.11) Active confirmed 584534780 Problem Preprocedural examination (Z01.818) Active confirmed 090419598221386 Problem Family history of colon cancer (Z80.0) Active confirmed 596442056 Problem Acute gastroenteritis (K52.9) Active confirmed Acute gastroenteritis (27402934) VITAL SIGNS Temperature 97.7 degrees Fahrenheit 02/23/2024 Blood pressure diastolic 00 mm Hg 02/23/2024 Height 62 in 02/23/2024 Blood pressure systolic 000 mm Hg 02/23/2024 Weight 124 lb 8 oz lbs 02/23/2024 BMI 22.77 kg/m2 02/23/2024 Encounters Encounter Location Date Provider Diagnosis [facility] [address] [place] [address] [place] [address] 05/16/2024 Lane Gracia [facility] [address] [place] [address] 02/23/2024 Lane Gracia Acute gastroenteriti s K52.9 ASSESSMENTS Encounter Date Diagnosis Assessment Notes Treatment Notes Treatment Clinical Notes 02/23/2024 Acute gastroenteriti s (ICD-10 - K52.9) Observe, eat healthy with fruits/vegetable s/etc. Call me if problems PLAN OF TREATMENT Future Test Test Name Order Date COLONOSCOPY 03/11/2012 COLONOSCOPY 10/15/2020 Insurance Providers Payer Name Payer Address Payer Phone Subscriber Number Group Number Insured Name Patient Relationship to Insured Coverage Start Date Coverage End Date [facility] [address] [place] [address] [phone] [id number] RENEE KELLER Self - patient is the insured MEDICAL (GENERAL) HISTORY Medical History History ICD Code Denies [place],DM,CVA,Lung disease,renal dise ase Hyperlipidemia History of Chronic UTI'S Negative colonoscopies in 2001 and 04/02 12 Colonoscopy 2020 with a smal l tubular adenoma and anal condyloma acuminatum--the latter was removed by Dr. Serra and she has had yearly follow ups with Dr. Serra, most recently in 08/2023. There was no dsyplasia/carcinoma Surgical History Surgery Date(Month/Year) Left foot surgery Hernia surgery--bilaterl inguinal Knee surgery bilateral Cataract surgery bilaterally 01/04-12/26
== END 2024-08-01 12:30 | disposition home or self-care (01) ==
LOC: HO.MAMMO 12:29
PROVIDERS: PCP Internal Medicine; Visit Provider Internal Medicine
DX: Z12.31 Encounter for screening mammogram for malignant neoplasm of breast (principal)
CPT/HCPCS: 77063; 77067

== ENCOUNTER → 2024-08-01 12:30 | Outpatient (BNV) | payer MEDICARE, SELFPAY | PROVIDERS: PCP Internal Medicine; Visit Provider Internal Medicine | DX: Z12.31 Encounter for screening mammogram for malignant neoplasm of breast (principal) | CPT/HCPCS: 77063; 77067 ==

== ENCOUNTER 2024-08-31 11:05 | Outpatient (REF) | payer MEDICARE, SELFPAY ==
[2024-08-31 12:07] LABS: Vitamin D 25-OH Total 75.2 ng/mL (>30)
== END 2024-08-31 11:06 | disposition home or self-care (01) ==
LOC: HO.LNP 11:05
PROVIDERS: Visit Provider Internal Medicine
DX: E55.9 Vitamin D deficiency, unspecified (principal)
CPT/HCPCS: 82306

== ENCOUNTER 2025-02-26 12:55 | Outpatient (REF) | payer MEDICARE, SELFPAY ==
--- OUTSIDE RECORDS SUMMARY | 2024-05-16 06:50 | XMS_ITS ---
Author Organization [facility] Address [address] [place] [address] Care Team Providers Care Oncology Registrar Name Role Phone Edin Akbar MD Primary Care Provider Lane Can [phone] REASON FOR VISIT diarrhea Encounters Encounter Location Date Provider Diagnosis [facility] [address] [place] [address] 05/16/2024 [address] Gracia Plan Of Treatment No Information Progress Notes * RENEE KELLERDOB:1940 (84 yo F)Acc No.[id number]:05/16/2024 Progress Notes Patient: RENEE STEVENS Provider: Betito Gracia MD :1940 A ge:83 Y S ex:Female Date:05/16/2024 Address:[address] [place] [place], [id number] Pcp:Edin Akbar MD Subjective: * Chief Complaints: * 1 . Diarrhea. * Medical History: Objective: * Vitals: Assessment: Plan: * Treatment: * * The named appointment provid er may or may not be the originator of this progress note, and it is not deemed complete until electronically signed by the appointment provider. Sign off status: Pending * Provider: Betito Gracia MD Date: 1 07/17/2023 Generated for Nelia suh/Christopher/eTransmitting on: 0 02/26/2025 05:53 PM EDT
--- OUTSIDE RECORDS SUMMARY | 2024-06-12 05:06 | XMS_ITS ---
Author Organization Edin Akbar MD Address 10 [facility] [address] [place] [phone] Care Team Providers Care Ui Software Developer Name Role Phone Edin Akbar Primary Care Provider [phone] Medications Medication SIG (Take, Route, Fr equency, Duration) Notes Start Date End Date Status Cephalexin 250 MG 1 capsule Orally 3 t imes for 7 days 06/12/2024 Active Encounters Encounter Location Date Provider Diagnosis Edin Akbar MD 10 [facility] [address] [place] [phone] 06/12/2024 Edin Akbar Plan Of Treatment Medication Medication Name Sig Start Date Stop Date Notes Cephalexin 250 MG 1 capsule Orally 3 times for 7 days 05/16 Next Appt Details Provider Name:Edin Ellsworth ier, 03/08/2025 08:30:00 AM, [address] [facility], Suite [facility], [place], [place], [phone], Progress Notes * Cristina MONTERODOB:1940 (83 yo F)Acc No.[id number]:06/12/2024 Patient: Scott Cristina escamilla :1940 A ge:83 Y S ex:Female Address:[address] [place] [address] * Refills Start Cephalexin Capsule, 250 MG, Orally, 21, 1 capsule, 3 times, 7 days * true * Date: Generated for Nelia suh/Christopher/Natitting on: 0 02/26/2025 05:53 PM EDT
--- OUTSIDE RECORDS SUMMARY | 2024-07-14 04:42 | XMS_ITS ---
Author Organization Edin Akbar MD Address [address] [place] [phone] Care Team Providers Care It Associate Name Role Phone Edin Akbar Primary Care Provider [phone] Encounters Encounter Location Date Provider Diagnosis Edin Akbar MD [address] [place], [place] [phone] 07/14/2024 Edin Akbar Plan Of Treatment Next Appt Details Provider Name:Edin Ellsworth ier, 03/08/2025 08:30:00 AM, [address], Suite [facility], [place], [place], [phone], Progress Notes * Cristina MONTERODOB:1940 (83 yo F)Acc No.[id number]:07/14/2024 Patient: Scott Cristina GALLOWAY :1940 A ge:83 Y S ex:Female Address:[address] [place] [address] * true * Date: Generated for Printi ng/Faxing/eTransmitting on: 0 02/26/2025 05:53 PM EDT
--- OUTSIDE RECORDS SUMMARY | 2024-08-31 03:45 | XMS_ITS ---
Author Organization Edin Akbar MD Address [address] [place], [place] [phone] Care Team Providers Care Software Administrator Name Role Phone Edin Akbar Primary Care Provider [phone] Results Component Value Reference Range Notes Vitamin D 25-OH Total Reviewed date:08/31/2024 12:17:29 PM Interpretation: Performing Lab:[facility], [address] [place] [phone] Notes/Report: Vitamin D 25-OH Total 75.2 >30 ng/mL Health Based Reference Values* < 20 ng/mL Deficient 20-30 ng/mL Insufficient > 30 ng/mL Sufficient *Davida MORALES. N Engl J Med. 2007;357:266-280 There is no well-established upper level of normal vitamin D levels. Some laboratories use 50 ng/mL as an upper limit of normal. However, toxicity is patient-dependent and may occur at any level. Careful correlation with the patient's presentation is necessary and, if there is concern for vitamin D toxicity, treatment should be considered irrespective of the serum level. Care must be taken in interpreting Vitamin [...] confirmed with another method such as LC-MS/MS. REASON FOR VISIT Vitamin D 25-OH Encounters Encounter Location Date Provider Diagnosis Edin Akbar MD [address] [place] [address] [place] [phone] 08/31/2024 Edin Akbar Vitamin D deficiency E55.9 Assessments Encounter Date Diagnosis (ICD Code) Assessment Notes Treatment Notes Treatment Clinical Notes Section Notes 08/31/2024 Vitamin D deficiency (ICD-10 - E55.9) Plan Of Treatment Next Appt Details Provider Name:Edin Ellsworth ier, 03/08/2025 08:30:00 AM, [address] [place] [address], Suite [facility], [place], [place], [phone], Progress Notes * Cristina MONTERODOB:1940 (84 yo F)Acc No.[id number]:08/31/2024 Progress Note Patient: Cristina STEVENS Provider: Scott Akbar MD :1940 A ge:83 Y S ex:Female Date:08/31/2024 Address:[address] [place], [place] [phone] Subjective: * Chief Complaints: * 1 . Vitamin D 25-OH. * Medical History: Objective: * Vitals: Assessment: * Assessment: 1. V itamin D deficiency - E55.9 (Primary) Plan: * Treatment: * Procedure Codes: 3 6415 VENIPUNCT, ROUTINE* * * The named appointment provid er may or may not be the originator of this progress note, and it is not deemed complete until electronically signed by the appointment provider. Sign off status: Pending * Provider: Scott Akbar MD Date: 0 08/31/2024 Generated for Nelia suh/Christopher/Natitting on: 0 02/26/2025 05:54 PM EDT
--- OUTSIDE RECORDS SUMMARY | 2024-09-07 05:00 | XMS_ITS ---
Author Organization Edin Akbar MD Address [address] [place], [place] [phone] Care Team Providers Care Educational Assistant Teacher Name Role Phone Edin Akbar Primary Care Provider [phone] Allergies No Known Allergies Results Component Value Reference Range Notes Hemoglobin A1c Reviewed date:09/07/2024 09:00:42 AM Interpretation: Performing Lab: Notes/Report: Hemoglobin A1c 6.4 Glucose, finger stick Reviewed date:09/07/2024 08:53:45 AM Interpretation: Performing Lab: Notes/Report: Value 127 REASON FOR VISIT 6 month Medications Medication SIG (Take, Route, Frequency, Duration) Notes Start Date End Date Status Diflucan 100 MG once a dsa Orally on a day for 5 days 04/19/2020 Not-Taking Calcium 600 MG 1 tablet with meals Orally Twice a day for 30 day(s) Not-Taking Meclizine HCl 25 MG 1 tablet as needed Orally twicee a day for 10 Not-Taking Flonase 50 MCG/ACT 1 spray in each nost ril Nasally Once a day for 30 days 09/09/2015 Not-Taking Transderm-Scop (1.5 MG) 1 MG/3DAYS 1 patch to skin as needed Transdermal every 3 days for 14 days 08/07/2016 Not-Taking Simvastatin 20 MG TAKE 1 TABLET BY ONCE A DAY IN THE EVENING Orally Once a day Active Vitamin D 1000 UNIT 1 tablet Orally Once a day 09/11/2015 Active Gabapentin 300 MG 1 capsule Orally Onc e a day for 30 days 09/07/2024 Active Vital Signs Blood pressure systolic 102 mm Hg 09/08/19 25 Blood pressure diastolic 56 mm Hg 025 Height 62 in 09/07/2024 Weight 130 lbs 09/07/2024 BMI 23.77 kg/m2 09/07/2024 weight is up 2 pounds since 06-09-24 Encounters Encounter Location Date Provider Diagnosis Edin Akbar MD [address] [place] [address] [place] [phone] 09/07/2024 Edin Akbar Prediabetes R73.09 ; Myalgia M79.10 and Vitamin D deficiency E55.9 Assessments Encounter Date Diagnosis (ICD Code) Assessment Notes Treatment Notes Treatment Clinical Notes Section Notes 09/07/2024 Prediabetes (ICD-10 - R73.09) stable, no need for medication at this time 09/07/2024 Myalgia (ICD-10 - M79.10) patient verbalized understanding of medication and directions for use 09/07/2024 Vitamin D deficiency (ICD-10 - E55.9) decrease to 1000, patient verbalized understanding of change in dose of medication Plan Of Treatment Medication Medication Name Sig Start Date Stop Date Notes Gabapentin 300 MG 1 capsule Orally Once a day for 30 days 09/07/2024 Treatment Notes Assessment Notes Prediabetes stable, no need for medication at this time Myalgia patient verbalized u nderstanding of medication and directions for use Vitamin D deficiency decrease to 1000, p atient verbalized understanding of change in dose of medication Next Appt Details Provider Name:Edin Ellsworth ier, 03/08/2025 08:30:00 AM, [address] [place] [address], [address], [place], [place], [phone], Progress Notes * Cristina MONTERODOB:1940 (83 yo F)Acc No.[id number]:09/07/2024 Progress Notes Patient: Scott Cristina GALLOWAY Provider: Scott Akbar MD :1940 A ge:83 Y S ex:Female Date:09/07/2024 Address: [id number] Subjective: * Chief Complaints: * 6 month * HPI: S ymptom(s): patient is a 83 yo female here for 6 month follow up visit. both knees are bothereing her. are 13 years old. has pain in both hips. trouble sleeping on side/ trouble sleeping and gabapentin helps. * ROS: G eneral/Constitutional: Denies C hills. D enies F atigue. D enies F ever. D enies H eadache. E NT: Patient denies d ecreased sense of smell, any loss of taste, sore throat. D enies S ore throat. E ndocrine: Denies D ifficulty sleeping. D enies D izziness.?Denies E xcessive sweating. D enies E xcessive thirst. D enies F requent urination. R espiratory: Denies C ough. D enies S hortness of breath at rest. D enies S hortness of breath with exertion. G astrointestinal: Denies D iarrhea. D enies N ausea. M usculoskeletal: Patient denies m uscle aches. P eripheral Vascular: Patient denies r ed and blue toes. * Medical History: * Surgical History: * Hospitalization/Major Diagno stic Procedure: * Medications: T akingSimvastatin 20 MG Tablet TAKE 1 TABLET BY MOUTH ONCE A DAY IN THE EVENING Orally Once a day Vitamin D 1000 UNIT Tablet 1 tablet Orally Once a day Taking Simvastatin 20 MG Tablet TAKE 1 TABLET BY MOUTH ONCE A DAY IN THE EVENING Orally Once a day Taking Vitamin D 1000 UNIT Tablet 1 tablet Orally Once a day Not- Taking/PRNCalcium 600 MG Tablet 1 tablet with meals Orally Twice a day Diflucan 100 MG Tablet once a dsa Orally once a day Meclizine HCl 25 MG Tablet 1 tablet as needed Orally twicee a day Flonase 50 MCG/ACT Suspension 1 spray in each nostril Nasally Once a day Transderm-Scop (1.5 MG) 1 MG/3DAYS Patch 72 Hour 1 patch to skin as needed Transdermal every 3 days Not-Taking/PRN Calcium 600 MG Tablet 1 tablet with meals Orally Twice a day Not-Taking/PRN Diflucan 100 MG Tablet once a dsa Orally once a day Not-Taking/PRN Meclizine HCl 25 MG Tablet 1 tablet as needed Orally twicee a day Not-Taking/PRN Flonase 50 MCG/ACT Suspension 1 spray in each nostril Nasally Once a day Not-Taking/PRN Transderm-Scop (1.5 MG) 1 MG/3DAYS Patch 72 Hour 1 patch to skin as needed Transdermal every 3 days DiscontinuedpredniSONE 10 MG Tablet 1 tablet with food or milk Orally 4 tabs for 3 days,3tabs for 3 days, 2 tabs for 3 days, and 1 tab for 3 days Cephalexin 250 MG Capsule 1 capsule Orally 3 times Medication List reviewed and reconciled with the patientDiscontinued predniSONE 10 MG Tablet 1 tablet with food or milk Orally 4 tabs for 3 days,3tabs for 3 days, 2 tabs for 3 days, and 1 tab for 3 days Discontinued Cephalexin 250 MG Capsule 1 capsule Orally 3 times Medication List reviewed and reconciled with the patient * Allergies: N .K.D.A.yes[Allergies Verified] Objective: * Vitals: H t: 62, Wt: 130, BMI:23.77, BP:102/56, Wt-k.97. weight is up 2 pounds since 06-09-24. * P ast Orders: L ab:Vitamin D 25-OH Total (Order Date - 08/31/2024) (Collection Date & Time - 08/31/2024 07:45 AM) Value Reference Range Vitamin D 25-OH Total 75.2 >30 - ng/mL * Examination: G eneral Examination: GENERAL APPEARANCE: a lert, well hydrated, in no distress.? SKIN: g ood turgor. HEART: n o murmurs, rubs, gallops, regular rate and rhythm.? LUNGS: c lear to auscultation bilaterally, good air movement, no wheezes, rales, rhonchi. Assessment: * Assessment: 1. P rediabetes - R73.09 (Primary) 2 . M yalgia - M79.10 3 . V itamin D deficiency - E55.9 Plan: * Treatment: Value Reference Range H emoglobin A1c 6.4 ?LAB: Glucose, finger stick (Collection Date & Time - 09/07/2024)* Value Reference Range V alue 127 Notes: stable, no need for medication at this time??2.?Myalgia? Start Gabapentin Capsule, 300 MG, 1 capsule, Orally, Once a day, 30 days, 30, Refills 11.? Notes: patient verbalized understanding of medication and directions for use?? 3.?Vitamin D deficiency? Notes: decrease to 1000, patient verbalized understanding of change in dose of medication? * Procedure Codes: 8 2947 ASSAY, GLUCOSE, BLOOD QUANT, Modifiers: QW 22167 GLYCATED HEMOGLOBIN TEST, Modifiers: QW * * Sign off status: Completed true * Provider: Scott Akbar MD Date: 0 09/07/2024 Generated for Nelia suh/Christopher/Natitting on: 0 02/26/2025 05:53 PM EDT History and Physical Notes * HPI (History of Present Illness) Category Sub-Category Detail Notes Category Not es Symptom(s) patient is a 83 yo female here for 6 month follow up visit. both knees are bothereing her. are 13 years old. has pain in both hips. trouble sleeping on side/ trouble sleeping and gabapentin helps Examination Category Sub-Category Detail Notes Category Not es General Examination GENERAL APPEARANCE: alert, w ell hydrated, in no distress HEART: no murmurs, rubs, ga llops, regular rate and rhythm LUNGS: clear to auscultatio n bilaterally, good air movement, no wheezes, rales, rhonchi SKIN: good turgor
--- OUTSIDE RECORDS SUMMARY | 2025-02-26 03:00 | XMS_ITS ---
Author Organization Edin Akbar MD Address [address] [place], [place] [id number] Care Team Providers Care Billposting Supervisor Name Role Phone Edin Akbar Primary Care Provider [phone] Results Component Value Reference Range Notes Complete Blood Count Auto Di ff Reviewed date:02/26/2025 04:51:36 PM Interpretation: Performing Lab:[facility], [address] [place] [phone] Notes/Report: White Blood Count 8.2 4.8-10.8 X10*3/uL Red Blood Count 4.81 4.20-5.50 X10*6/uL Hemoglobin 14.5 12.0-16.0 g/dl Hematocrit 43.7 37.0-47.0 % Mean Corpuscular Volume 90.9 80.0-98.0 fL Mean Corpuscular Hemoglobin 30.1 27.0-33.0 pg Mean Corpuscular HGB Conc 33.2 31.0-35.0 g/dl Red Cell Distribution Width 13.5 11.0-16.0 % Platelet Count 304 160-400 X10*3/uL Mean Platelet Volume 10.7 9.4-12.3 fL Neutrophils Percent Auto 56.9 45-73 % Imm Gran Pct Auto 0.4 0.0-0.4 % Lymphocytes Percent Auto 27.9 20-40 % Monocytes Percent Auto 12.7 2-11 % Eosinophils Percent Auto 1.5 0-4 % Basophils Percent Auto 0.6 0-2 % NRBC Pct Auto 0.0 0.0-0.2 /100WBC Neutrophils Absolute Auto 4.6 2.0-8.3 x10*3/u L Imm Gran Abs Auto 0.03 0.00-0.03 X10*3/uL Lymphocytes Absolute Auto 2.3 1.2-4.9 X10*3/u L Monocytes Absolute Auto 1.0 0.1-1.2 X10*3/uL Eosinophils Absolute Auto 0.1 0.0-0.4 X10*3/u L Basophils Absolute Auto 0.1 0.0-0.2 X10*3/uL NRBC Abs Auto 0.000 0.0-0.012 X10*3/uL Comprehensive [place]. Panel Fa st Reviewed date:02/26/2025 04:48:20 PM Interpretation: Performing Lab:[address] [phone] Notes/Report: Sodium 141 135-145 mmol/L Potassium 4.5 3.3-5.1 mmol/L Chloride 106 96-108 mmol/L Carbon Dioxide 27 22-29 mmol/L Anion Gap 13 12-20 Blood Urea Nitrogen 16 9-16 mg/dL Creatinine 0.81 0.5-1.4 mg/dL Estimated Glomerular Filt Rate > 60 Chronic Kidney Disease: Estimated GFR < 60 mL/min/1.73m2 Severe Kidney Disease: Estimated GFR < 15 mL/min/1.73m2 Glucose Fasting 111 60-99 mg/dL A fasting glucose from 100-125 mg/dl is considered impaired (pre-diabetes). Calcium 9.7 8.4-10.2 mg/dL Bilirubin Total 0.6 0.0-1.0 mg/dL Aspartate Amino Transferase 30 5-31 U/L Alanine Aminotransferase 24 0-31 U/L Total Protein 7.6 6.5-8.0 g/dL Albumin Level 4.6 3.5-5.0 g/dL Alkaline Phosphatase 67 39-117 U/L Lipid Panel Reviewed date:02/26/2025 04:45:15 PM Interpretation: Performing Lab:[address] [place] [phone] Notes/Report: Triglycerides 117 <150 mg/dL Desirable Triglyceride: less than 150 mg/dL Borderline High Triglyceride 150-199 mg/dL High Triglyceride: 200-499 mg/dL Very High Triglyceride: greater than or equal to 5OO mg/dL Cholesterol 184 <200 mg/dL Desirable Cholesterol: less than 200 mg/dL Borderline High Cholesterol: 200-239 mg/dL High Cholesterol: greater than 239 mg/dL LDL Cholesterol Calculated 93 <100 mg/dL Desirable LDL: less than 100 mg/dL Near Optimal/Above Optimal LDL: 110-129 mg/dL Borderline High LDL: 130-159 mg/dL High LDL: 160-189 mg/dL Very High LDL: greater than or equal to 190 mg/dL HDL Cholesterol 68 >40 mg/dL Desirable HDL: greater than 40 mg/dL Note: This HDL assay may give artificially low results in patients with liver disease. Vitamin D 25-OH Total Reviewed date:02/26/2025 04:45:27 PM Interpretation: Performing Lab:[address] [phone] Notes/Report: Vitamin D 25-OH Total 79.7 >30 ng/mL Health Based Reference Values* < [...] method such as LC-MS/MS. Microalbumin, Random Reviewed date:02/26/2025 04:44:52 PM Interpretation: Performing Lab:[address] [place] [address] Notes/Report: Creatinine Urine 69.84 Microalbumin Urine < 5.0 Microalbum/Creatinine Ratio Ur TNP <30 ug/mg cr Unable to calculate albumin/creatinine ratio due to low microalbumin or creatinine result. Hemoglobin A1c Reviewed date:02/26/2025 01:42:10 PM Interpretation: Performing Lab:[facility], [address] [place] [phone] Notes/Report: Hemoglobin A1c % 6.0 <6.0 % Hemoglobin A1C Reference Range Adults: 4.8 - 6.0 % Non diabetic: < 6.0 % Goal: < 7.0 % Additional Action Suggested: > 8.0 % Note: Hemoglobin A1c results are invalid for patients with abnormal amounts of HbF. Blood transfusions may impact the HbA1c concentration in the patient sample. Estimated Average Glucose 126 eAG = Estimated average glucose which is %A1C expressed as average glucose, using the formula of the [id number] Average Glucose study (ADAG), Diabetes Care, Vol.31,#8, Jan. 2007 REASON FOR VISIT yearly fasting labs Encounters Encounter Location Date Provider Diagnosis Edin Akbar MD [address] [place] [phone] 02/26/2025 Edin Akbar Blood tests for rout ine general physical examination Z00.00 ; Prediabetes R73.09 ; Pure hypercholesterolemia E78.00 and Vitamin D deficiency E55.9 Assessments Encounter Date Diagnosis (ICD Code) Assessment Notes Treatment Notes Treatment Clinical Notes Section Notes 02/26/2025 Blood tests for rout ine general physical examination (ICD-10 - Z00.00) 02/26/2025 Prediabetes (ICD-10 - R73.09) 02/26/2025 Pure hypercholesterolemia (ICD-10 - E78.00) 02/26/2025 Vitamin D deficiency (ICD-10 - E55.9) Plan Of Treatment Pending Test Test Name Order Date UA ClnCatch+Micro w/rflx Cult 02/26/2025 Next Appt Details Provider Name:Edin pineda, 03/08/2025 08:30:00 AM, [address] [facility], [address], [place], [place], [phone], Progress Notes * Eleazar MONTERO:1940 (84 yo F)Acc No.[id number]:02/26/2025 Progress Note Patient: Cristina STEVENS Provider: Scott Akbar MD :1940 A ge:84 Y S ex:Female Date:02/26/2025 Address:[address] [place], [place] [id number] Subjective: * Chief Complaints: * 1 . Yearly fasting labs. * Medical History: Objective: * Vitals: Assessment: * Assessment: 1. B lood tests for routine general physical examination - Z00.00 (Primary) 2 .?Prediabetes - R73.09 3 . P ure hypercholesterolemia - E78.00 ?4. V itamin D deficiency - E55.9 Plan: * Treatment: 2. P rediabetes L AB: UA ClnCatch+Micro w/rflx Cult L AB: Complete Blood Count Auto Diff (Collection Date & Time - 02/26/2025 07:00 AM) L AB: Comprehensive [place]. Panel Fast (Collection Date & Time - 02/26/2025 07:00 AM) L AB: Lipid Panel (Collection Date & Time - 02/26/2025 07:00 AM) L AB: Vitamin D 25-OH Total (Collection Date & Time - 02/26/2025 07:00 AM) L AB: Microalbumin, Random (Collection Date & Time - 02/26/2025 07:00 AM) L AB: Hemoglobin A1c (Collection Date & Time - 02/26/2025 07:00 AM) 3. P ure hypercholesterolemia L AB: UA ClnCatch+Micro w/rflx Cult L AB: Complete Blood Count Auto Diff (Collection Date & Time - 02/26/2025 07:00 AM) L AB: Comprehensive [place]. Panel Fast (Collection Date & Time - 02/26/2025 07:00 AM) L AB: Lipid Panel (Collection Date & Time - 02/26/2025 07:00 AM) L AB: Vitamin D 25-OH Total (Collection Date & Time - 02/26/2025 07:00 AM) L AB: Microalbumin, Random (Collection Date & Time - 02/26/2025 07:00 AM) L AB: Hemoglobin A1c (Collection Date & Time - 02/26/2025 07:00 AM) 4. V itamin D deficiency L AB: UA ClnCatch+Micro w/rflx Cult L AB: Complete Blood Count Auto Diff (Collection Date & Time - 02/26/2025 07:00 AM) L AB: Comprehensive [place]. Panel Fast (Collection Date & Time - 02/26/2025 07:00 AM) L AB: Lipid Panel (Collection Date & Time - 02/26/2025 07:00 AM) L AB: Vitamin D 25-OH Total (Collection Date & Time - 02/26/2025 07:00 AM) L AB: Microalbumin, Random (Collection Date & Time - 02/26/2025 07:00 AM) L AB: Hemoglobin A1c (Collection Date & Time - 02/26/2025 07:00 AM) * Procedure Codes: 3 6415 VENIPUNCT, ROUTINE* * * The named appointment provid er may or may not be the originator of this progress note, and it is not deemed complete until electronically signed by the appointment provider. Sign off status: Pending * Provider: Scott Akbar MD Date: 0 02/26/2025 Generated for Nelia suh/Christopher/Natitting on: 02/26/2025 05:53 PM EDT
[2025-02-26 13:04] LABS: MANUAL DIFF FLAG NO
[2025-02-26 13:27] LABS: Hematocrit 43.7 % (37.0-47.0); Hemoglobin 14.5 g/dl (12.0-16.0); Imm Gran Abs Auto 0.03 X10*3/uL (0.00-0.03); Imm Gran Pct Auto 0.4 % (0.0-0.4); Lymphocytes Absolute Auto 2.3 X10*3/uL (1.2-4.9); Mean Corpuscular HGB Conc 33.2 g/dl (31.0-35.0); Mean Corpuscular Hemoglobin 30.1 pg (27.0-33.0); Mean Corpuscular Volume 90.9 fL (80.0-98.0); NRBC Abs Auto 0.000 X10*3/uL (0.0-0.012); NRBC Pct Auto 0.0 /100WBC (0.0-0.2); Platelet Count 304 X10*3/uL (160-400); Red Blood Count 4.81 X10*6/uL (4.20-5.50); White Blood Count 8.2 X10*3/uL (4.8-10.8)
[2025-02-26 13:32] LABS: Hemoglobin A1C 156.9440 umol/L; Total Hemoglobin (HGBA1C) 3701.7478 umol/L
[2025-02-26 13:48] LABS: Alanine Aminotransferase 24 U/L (0-31); Albumin Level 4.6 g/dL (3.5-5.0); Alkaline Phosphatase 67 U/L (39-117); Anion Gap 13 (12-20); Aspartate Amino Transferase 30 U/L (5-31); Blood Urea Nitrogen 16 mg/dL (9-16); Calcium 9.7 mg/dL (8.4-10.2); Carbon Dioxide 27 mmol/L (22-29); Chloride 106 mmol/L (96-108); Cholesterol 184 mg/dL (<200); Estimated Glomerular Filt Rate > 60; HDL Cholesterol 68 mg/dL (>40); Potassium 4.5 mmol/L (3.3-5.1); Sodium 141 mmol/L (135-145); Total Protein 7.6 g/dL (6.5-8.0); Triglycerides 117 mg/dL (<150)
[2025-02-26 14:01] LABS: Appearance Urine Clear; Glucose Urine UA Negative (Negative); PH 6.5 (5.0-9.0); Specific Gravity - Urine 1.015 (1.005-1.025)
--- OUTSIDE RECORDS SUMMARY | 2025-02-26 17:53 | XMS_ITS | Clinical Summary ---
Author Organization [facility] Address [address] [place] [address] Phone Care Team Providers Care Carton Inspector Name Role Phone Edin Akbar MD Primary Care Provider Allergies No known active allergies Medications simvastatin (ZOCOR) 20 MG tablet Take 20 mg by mouth nightly at bedtime. Active calcium carbonate (CALCIUM 600 ORAL) Take by mouth. 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 Reassured re: normal breast exam. Presumably referred for pap due to anorectal condyloma/AIN. Cristina expresses strong wish for exploration of any concern for cancer, so Pap/HPV screen done. Family History Medical History Relation Comments No Known Problems Father No Known Problems Mother Relation Status Comments Father Mother Social History Tobacco Use Types Packs/Day Years Used Date Smoking Tobacco: Never Smokeless Tobacco: Never Alcohol Use Standard Drinks/Week Comments Never 0 (1 standard drink = 0.6 oz pur e alcohol) Education Answer Date Recorded Are you interested in more education? Not on rk e 10/09/2022 Are you concerned about learning? Not on file 10/09/2022 No 10/09/2022 No 10/09/2022 Digital Access Answer Date Recorded No 11/07/2022 No 11/07/2022 No 11/07/2022 Reliable internet access at home? Not on file 11/07/2022 Device with a working camera? Not on file Intimate Partner Violence Answer Date R ecorded Are you denied basic needs s uch as food, clothing, or medical care? No 05/30/2024 In the past 12 months have y ou been in a relationship with a person who hurts, threatens, or tries to control you? No 05/30/2024 Are you denied basic needs s uch as food, clothing, or medical care? No 05/30/2024 In the past 12 months have y ou been in a relationship with a person who hurts, threatens, or tries to control you? No 05/30/2024 Comments No Sex and Gender Information Value Date Recorded Sex Assigned at Female 05/30/2024 8:32 PM EST Legal Sex Female 10:11 PM EDT Gender Identity Female 05/30/2024 8:32 PM EST Sexual Orientation Don't know 05/30/2024 8: 32 PM EST Last Filed Vital Signs Vital Sign Reading Time Taken Comments Blood Pressure 122/66 05/30/2024 10:05 PM EST Pulse 89 05/30/2024 10:05 PM EST Temperature 36.8 C (98.2 F) 05/30/2024 10:05 PM EST Respiratory Rate 18 05/30/2024 10:05 PM EST Oxygen Saturation 94% 05/30/2024 10:05 PM EST Inhaled Oxygen Concentration - - Weight 59.4 kg (131 lb) 11/19/2020 10:26 AM EDT Height - - Body Mass Index - - Plan of Treatment Health Maintenance Due Date Last Done Comments Adult Td,Tdap Booster 1940 DEPRESSION SCREENING 1953 ZOSTER VACCINES (1 of 2) 10/04/1991 OSTEOPOROSIS SCREENING INITI AL (ONE-TIME) 2006 RSV VACCINE (1 - 1-dose 75+ series) 2016 PNEUMOCOCCAL VACCINES (50+ years) (2 of 2 - PCV) 01/29/2021 01/30/2020 INFLUENZA VACCINE (#1) 2025 COVID-19 VACCINE (3 - 2024-2 6 season) 2025 08/11/2020, 07/21/2020 HEPATITIS A VACCINES Aged Out No long er eligible based on patient's age to complete this topic HIB VACCINES Aged Out No longer eligi ble based on patient's age to complete this topic MENINGOCOCCAL VACCINES (ACWY) Aged Out No longer eligible based on patient's age to complete this topic MENINGOCOCCAL VACCINES (B) Aged Out N o longer eligible based on patient's age to complete this topic Medical Devices Not on file Insurance [employer] H[employer] REPLACEMENT [place] [id number] [employer] REPLACEMENT MEDICARE PART A & B [employer] H[employer]PLACEMENT MEDICARE PART A & B [facility] MEDICARE HMO REPLACEMENT MEDICARE PART A & B [employer] HMO REPLACEMENT MEDICARE PART A & B MEDICARE PART A & B MEDICARE HMO REPLACEMENT MEDICARE PART A & B MEDICARE PART A & [place] [address] [place] [address] MEDICARE HMO REPLACEMENT MEDICARE PART A & B Care Teams Carton Inspector Relationship Specialty Start Date End Date Edin Akbar MD [address] [place] [address] Dr Garcia, [place] [address] PCP - General Internal Medicine 05/30/24 Additional Source Comments The information contained in this document represents components of the legal health record. It is not the complete legal health record.[facility]
--- OUTSIDE RECORDS SUMMARY | 2025-02-26 17:54 | XMS_ITS | Patient Health Record ---
Author Organization [facility] Address [address] [place] [address] Care Team Providers Care Supplier Diversity Director Name Role Phone Edin Akbar MD Primary Care Provider Lane Can [phone] Allergies Allergen (clinical drug ingredient) Drug/Non Drug Allergy documented on EMR Reaction Allergy Type Onset Date Status Steroid steroid (uncoded) Unknown Allergy Ac tive Reason For Referral No Information Medications Medication SIG (Take, Route, Frequency, Duration) Notes Start Date End Date Status Simvastatin 10mg Act ryne Loperamide-Simethicone 2-125 MG as directed Orally prn Active Calcium 500mg Active Immunizations Vaccine Route Administration Date Status Comme nts Influenza Unknown 10/15/2020 Refused Influenza Unknown 02/23/2024 Refused Problems Problem Type SNOMED Code ICD Code Onset Dates Problem Status W/U Status Risk Notes Problem [id number] Encounter for screening for malignant neoplasm of colon (Z12.11) Active confirmed Problem [id number] Preprocedural examination (Z01.818) Active confirmed Problem 393853337 Family history o f colon cancer (Z80.0) Active confirmed Problem Acute gastroenteritis (53047578) Acute gastroenteritis (K52.9) Active confirmed Plan Of Treatment Future Test Test Name Order Date COLONOSCOPY 03/11/2012 COLONOSCOPY 10/15/2020 Insurance Providers Payer Name Payer Address Payer Phone Subscriber Number Group Number Insured Name Patient Relationship to Insured Coverage Start Date Coverage End Date [facility] [address] [place] [phone] [id number] RENEE KELLER Self - patient is the insured Medical (General) History Medical History History ICD Code Denies MT,DM,CVA,Lung disease,renal dise ase Hyperlipidemia History of Chronic [...]
--- OUTSIDE RECORDS SUMMARY | 2025-02-26 17:54 | XMS_ITS | Patient Health Record ---
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 Complete Blood Count Auto Di ff Reviewed date:02/26/2025 04:51:36 PM Interpretation: Performing Lab:[facility], [address] [place] [phone] Notes/Report: White Blood Count 8.2 4.8-10.8 X10*3/uL [...] 0.0-0.2 /100WBC Neutrophils Absolute Auto 4.6 2.0-8.3 x10*3/uL Imm Gran Abs Auto 0.03 0.00-0.03 X10*3/uL Lymphocytes Absolute Auto 2.3 1.2-4.9 X10*3/uL Monocytes Absolute Auto 1.0 0.1-1.2 X10*3/uL Eosinophils Absolute Auto 0.1 0.0-0.4 X10*3/uL Basophils Absolute Auto 0.1 0.0-0.2 X10*3/uL NRBC Abs Auto 0.000 0.0-0.012 X10*3/uL Comprehensive [place]. Panel Fa st Reviewed date:02/26/2025 04:48:20 PM Interpretation: Performing Lab:[facility], [address] [place] [phone] Notes/Report: Sodium 141 135-145 mmol/L Potassium 4.5 [...] Panel Reviewed date:02/26/2025 04:45:15 PM Interpretation: Performing Lab:[facility], [address] [place] [phone] Notes/Report: Triglycerides 117 <150 mg/dL Desirable Triglyceride: [...] Total Reviewed date:02/26/2025 04:45:27 PM Interpretation: Performing Lab:[facility], [address] [place] [phone] Notes/Report: Vitamin D 25-OH Total 79.7 >30 [...] Random Reviewed date:02/26/2025 04:44:52 PM Interpretation: Performing Lab:[facility], [address] [place] [phone] Notes/Report: Creatinine Urine 69.84 Microalbumin Urine < 5.0 Microalbum/Creatinine Ratio Ur TNP <30 ug/mg cr Unable to calculate albumin/creatinine ratio due to low microalbumin or creatinine result. Hemoglobin A1c Reviewed date:02/26/2025 01:42:10 PM Interpretation: Performing Lab:[facility], [address] [place] [phone] Notes/Report: Hemoglobin A1c % 6.0 <6.0 % [...] average glucose, using the formula of the Y1T-Fkyijkz Average Glucose study (ADAG), Diabetes Care, Vol.31,#8, 2007 Occult Blood, Stool, Guaiac Reviewed date:03/02/2024 04:04:30 PM Interpretation:Negative Performing Lab: Notes/Report: Negative Occult Blood, Stool, Guaiac Neg UA ClnCatch+Micro w/rflx Cul t Reviewed date:03/03/2024 02:55:48 PM Interpretation: Performing Lab:[facility], [address] [place] [phone] Notes/Report: Urine, Clean Catch Color Urine Yellow Appearance Urine Clear PH 6.5 5.0-9.0 Glucose Urine UA 250 Negative mg/dL Urine Blood Negative Negative Specific [place] - Urine 1.015 1.005-1.025 Urine Protein Negative Neg-Trace mg/dL Urine Ketones Negative Negative mg/dL Nitrite Urine Negative Negative Leukocyte Esterase Urine Trace Negative RBC Urine 0-2 0-2 /HPF WBC Urine 0-5 0-5 /HPF Squamous Epithelial Cell Urine 0-2 0-2 /HPF Bacteria Urine None Seen None Seen Hyaline Casts Urine 0-2 0-2 /LPF UA ClnCatch+Micro w/rflx Cul t Reviewed date:06/09/2024 04:26:43 PM Interpretation: Performing Lab:[facility], [address] [place] [phone] Notes/Report: Urine, Clean Catch Color Urine Yellow Appearance Urine Clear PH 6.5 5.0-9.0 Glucose Urine UA 250 Negative mg/dL Urine Blood Negative Negative Specific [place] - Urine <= 1.005 1.005-1.025 Urine Protein Negative Neg-Trace mg/dL Urine Ketones Negative Negative mg/dL Nitrite Urine Negative Negative Leukocyte Esterase Urine Trace Negative RBC Urine 0-2 0-2 /HPF WBC Urine 0-5 0-5 /HPF Squamous Epithelial Cell Urine 0-2 0-2 /HPF Bacteria Urine None Seen None Seen Hyaline Casts Urine 0-2 0-2 /LPF Glucose, finger stick Reviewed date:09/07/2024 08:53:45 AM Interpretation: Performing Lab: Notes/Report: Value 127 MM tomosynthesis screening B I Reviewed date:08/08/2024 04:48:27 PM Interpretation: Performing Lab: Notes/Report: [address] [place] [address] Mammography Report Signed Patient: Cristina Montero MR#: [id number] : 1940 Acct:[id number] Age/Sex: 83 / F ADM Date: 08/01/24 Loc: HO.MAMMO Attending Dr: Edin Akbar MD Ordering Physician: Edin Akbar MD Results: 1Ne gative Date of Service: 08/01/24 Follow Up: 1 Year From Orig [facility] Mammogram Procedure(s): MM tomosynthesis screening BI Accession Number(s): [id number] cc: Edin Akbar MD EXAMINATION: MM SCREENING DIGITAL BREAST TOMOSYNTHESIS, BILATERAL CLINICAL INFORMATION: Screening. Asymptomatic. COMPARISON: Mammography: Comparison is made with available priors TECHNIQUE: Digital breast mammography with tomosynthesis is performed in both the craniocaudal and mediolateral oblique views along with computer-aided detection (CAD). FINDINGS: There are scattered areas of fibroglandular [...] target due date for their next mammogram. 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 [address] Mammography Report Signed Patient: Samanta Montero MR#: [id number] : 1940 Acct:[id number] Age/Sex: 83 / F ADM Date: 08/01/24 Loc: HO.MAMMO Attending Dr: Edin Akbar MD Ordering Physician: Edin Akbar MD Results: 1Ne gative Date of Service: 08/01/24 Follow Up: 1 Year From Orig ina Mammogram Procedure(s): MM tomosynthesis screening BI Accession Number(s): [id number] cc: Edin Akbar MD EXAMINATION: MM SCREENING DIGITAL BREAST TOMOSYNTHESIS, BILATERAL CLINICAL INFORMATION: Screening. Asymptomatic. COMPARISON: Mammography: Comparison is made with available priors TECHNIQUE: Digital breast mammography with tomosynthesis is performed in both the craniocaudal and mediolateral oblique views along with computer-aided detection (CAD). FINDINGS: There are scattered areas of fibroglandular [...] target due date for their next mammogram. 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 Call Hematology if testing is desired. Jerad Garcia Reviewed date:02/26/2025 01:42:48 PM Interpretation: Performing Lab:[facility], [address] [place] [phone] Notes/Report: Hold Gold See Note Specimen held untested for 24 hours; Call to request Chemistry testing. UA CC w/rflx Micro + Cult Reviewed date:02/26/2025 04:52:41 PM Interpretation: Performing Lab:[facility], [address] [place] [address], [place] [phone] Notes/Report: Urine, Clean Catch Color Urine Yellow Appearance Urine Clear PH 6.5 5.0-9.0 Glucose Urine UA Negative Negative mg/dL Urine Blood Negative Negative Specific [place] - Urine 1.015 1.005-1.025 Urine Protein Negative Neg-Trace mg/dL Urine Ketones Negative Negative mg/dL Nitrite Urine Negative Negative Leukocyte Esterase Urine Negative Negative Reason For Referral No Information Medications Medication SIG (Take, Route, Frequency, Duration) Notes Start Date End Date Status Diflucan 100 MG once a dsa Orally on ce a day for 5 days 04/19/2020 Not-Taking Simvastatin 20 MG TAKE 1 TABLET BY TRI TH ONCE A DAY IN THE EVENING for 90 Active Calcium 600 MG 1 tablet with meals Orally Twice a day for 30 day(s) Not-Taking Vitamin D 1000 UNIT 1 tablet Orally Once a day 09/11/2015 Active Meclizine HCl 25 MG 1 tablet as needed Orally twicee a day for 10 Not-Taking Flonase 50 MCG/ACT 1 spray in each nost ril Nasally Once a day for 30 days 09/09/2015 Not-Taking Transderm-Scop (1.5 MG) 1 MG/3DAYS 1 patch to skin as needed Transdermal every 3 days for 14 days 08/07/2016 Not-Taking Gabapentin 300 MG 1 capsule Orally Onc e a day for 30 days 09/07/2024 Active Immunizations Vaccine Route Administration Date Status [...] Unknown 01/18/2020 Refused refu sed to schedule Social History Tobacco Use: Social History Observation Description Date Details (start date - stop date) Never Smoker NA - NA Tobacco Use/Smoking Question Answer Notes Patient is a nonsmoker Additional Findings: Tobacco Non-User Cu rrent non-smoker, currently using no form of tobacco Alcohol Screen Question Answer Notes Did you have a drink containing alcohol in the p ast year? No Points 0 Interpretation Negative Problems Problem Type SNOMED Code ICD Code Onset Dates Problem Status W/U Status Risk Notes Problem 98194180 Vitamin D defici ency (E55.9) Active confirmed Problem Hypercalcemia (18809391) Hypercalcemia (E83.52) Active confirmed Problem 505647660 Osteopenia (M85.80) Active confirmed Problem 6821788 Prediabetes (R73.09) Active confirmed Problem 1427134 Post herpetic neuralgia (B02.29) Active confirmed Problem 395968003 Pure hypercholesterolemia (E78.00) Active confirmed Problem Localized, primary osteoarthritis of the hand (751326500) Arthritis of hand (M19.049) Active confirmed Problem Cervical arthritis (disorder) (057622827) 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) Active confirmed Problem Anogenital warts (328910832) Condyloma acuminata (A63.0) Active confirmed Problem Arthritis of both knees (954962826791514 8) Arthritis of both knees (M17.0) Active confirmed Problem 163889213 Fat deposits (E65) Active confirmed Problem 619708447 Acute constipati on (K59.00) Active confirmed Problem 30479160 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, unspecified age-related cataract type (H25.9) Active confirmed Vital Signs Blood pressure diastolic 56 mm Hg 09/07/2024 joni ght is up 2 pounds since 06-09-24 Height 62 in 09/07/2024 weight is up 2 pounds since 06-09-24 Blood pressure systolic 102 mm Hg 09/07/2024 weig ht is up 2 pounds since 06-09-24 Weight 130 lbs 09/07/2024 weight is up 2 pounds since 06-09-24 BMI 23.77 kg/m2 09/07/2024 weight is up 2 pounds since 06-09-24 Encounters Encounter Location Date Provider Diagnosis Edin Akbar MD [address] [place] [id number] 08/31/2024 Edin Akbar Vitamin D deficiency E55.9 Edin Akbar MD [address] [place] [id number] 02/26/2025 Edin Akbar Blood tests for rout ine general physical examination Z00.00 ; Prediabetes R73.09 ; Pure hypercholesterolemia E78.00 and Vitamin D deficiency E55.9 Edin Akbar MD [address] [place] [id number] 03/02/2024 Edin Akbar Aftercare Z51.89 ; A nnual physical exam Z00.00 ; Acute UTI N39.0 ; Vitamin D deficiency E55.9 ; Condyloma acuminata A63.0 ; Prediabetes R73.09 ; Pure hypercholesterolemia E78.00 and Colon cancer screening Z12.11 Edin Akbar MD [address] [place] [id number] 04/21/2024 Edin Akbar Spinal stenosis of l umbar region with neurogenic claudication M48.062 and Bacterial conjunctivitis H10.9 Edin Akbar MD [address] [place] [id number] 06/09/2024 Edin Akbar After-treatment Z51. 89 ; Lung nodules R91.8 ; Viral bronchitis J20.8 and Acute UTI N39.0 Edin Akbar MD [address] [place] [id number] 09/07/2024 Edin Akbar Prediabetes R73.09 ; Myalgia M79.10 and Vitamin D deficiency E55.9 Edin Akbar MD [address] [place] [id number] 05/02/2024 Edin Akbar MD [address] [place] [id number] 06/01/2024 Edin Akbar MD [address] [place] [id number] 06/12/2024 Edin Akbar MD [address] [place], [place] [id number] 07/14/2024 Edin Akbar Assessments Encounter Date Diagnosis (ICD Code) Assessment Notes Treatment Notes Treatment Clinical Notes Section Notes 08/31/2024 Vitamin D deficiency (ICD-10 - E55.9) 02/26/2025 [address] tests for rout ine general physical examination (ICD-10 - Z00.00) 03/02/2024 Aftercare (ICD-10 - Z51.89) pending follow up testing 03/02/2024 Annual physical exam (ICD-10 - Z00.00) labs reviewed and discussed with patient 04/21/2024 Spinal stenosis of lumbar region with neurogenic claudication (ICD-10 - M48.062) pending diagnostic testing, THE ORDER HAS BEEN FAXED TO [facility] AND PATIENT IS AWARE 04/21/2024 Bacterial conjunctivitis (ICD-10 - H10.9) patient verbalized understanding of medication and doirections for use 06/09/2024 After-treatment (ICD -10 - Z51.89) 06/09/2024 Lung nodules (ICD-10 - R91.8) CT of chest ordered to monitor 09/07/2024 Prediabetes (ICD-10 - R73.09) stable, no need for medication at this time 09/07/2024 Myalgia (ICD-10 - M79.10) patient verbalized understanding of medication and directions for use 02/26/2025 Prediabetes (ICD-10 - R73.09) 03/02/2024 Acute UTI (ICD-10 - N39.0) pending lab testing 06/09/2024 Viral bronchitis (ICD-10 - J20.8) Ct chest order will be faxed to [facility] cs dept after auth is done, patient verbalized understanding of medication and directions for use 09/07/2024 Vitamin D deficiency (ICD-10 - E55.9) decrease to 1000, patient verbalized understanding of change in dose of medication 02/26/2025 Pure hypercholesterolemia (ICD-10 - E78.00) 03/02/2024 Vitamin D deficiency (ICD-10 - E55.9) will continue to monitor 06/09/2024 Acute UTI (ICD-10 - N39.0) ordered a repeat u/a and c/s to determine if there is an infection 02/26/2025 Vitamin D deficiency (ICD-10 - E55.9) 03/02/2024 Condyloma acuminata (ICD-10 - A63.0) had been followed by dr escalera and is resolved 03/02/2024 Prediabetes (ICD-10 - R73.09) stable, no need for medication at this time 03/02/2024 Pure hypercholesterolemia (ICD-10 - E78.00) stable, will continue current regiment 03/02/2024 Colon cancer screeni ng (ICD-10 - Z12.11) guaiac negative Plan Of Treatment Pending Test Test Name Order Date Electrocardiogram (EKG) 06/24/2012 Electrocardiogram (EKG) 10/07/2017 Electrocardiogram (EKG) 10/20/2018 MRI LUMBAR SPINE NO CONTRAST 04/21/2024 UA ClnCatch+Micro w/rflx Cult 02/26/2025 Future Test Test Name Order Date CT chest wo con 09/07/2024 Next Appt Details Provider Name:Edin Ellsworth ier, 03/08/2025 08:30:00 AM, [address] [place] [address], [address], [place], [place], [id number], Insurance Providers Payer Name Payer Address Payer Phone Subscriber Number Group Number Insured Name Patient Relationship to Insured Coverage Start Date Coverage End Date [employer] [facility] [address] [place] [phone] [id number] Kylah Cristina Self - patient is the insured [employer] [address]AN [address] [place] [phone] [id number] Kylah Cristina Self - patient is the insured Medical (General) History Medical History History ICD Code colonoscopy - 04/13/2012 - no further w/ u necessary [facility] [employer], DR. Berta BLACK Mammo scheduled for 12/18/13 History of abnormal mammogram Z87.898 anal lesion needs yearly anoscopy lung nodule. refuses ct as she would not do anything if there is anything
== END 2025-02-26 12:56 | disposition home or self-care (01) ==
LOC: HO.LNP 12:55
PROVIDERS: Visit Provider Internal Medicine
DX: Z00.00 Encounter for general adult medical examination without abnormal findings (principal); R73.09 Other abnormal glucose; E78.00 Pure hypercholesterolemia, unspecified; E55.9 Vitamin D deficiency, unspecified
CPT/HCPCS: 80053; 80061; 81003; 82043; 82306; 82570; 83036; 85025